=== PATIENT | male | born 1990 | race Caucasian/White ===

== ENCOUNTER 2020-03-30 10:33 | Inpatient (IN) | payer OTHER ==
--- OUTSIDE RECORDS SUMMARY | 2020-03-30 10:38 | XMS ---
:1990 Author Organization [facility] Care Team Providers Name Role Phone Tobin Austin MD Unavailable Unavailable Gold Ambrose DO Unavailable Unavailable Miles Milner MD Unavailable Unavailable Heather Benites PA-C Unavailable Unavailable Re-disclosure Warning The records that you are about to access may contain information from federally- assisted alcohol or drug abuse programs. If such information is present, then the following federally mandated warning applies: This information has been disclosed to you from records protected by federal confidentiality rules (42 CFR part 2). The federal rules prohibit you from making any further disclosure of this information unless further disclosure is expressly permitted by the written consent of the person to whom it pertains or as otherwise permitted by 42 CFR part 2. A general authorization for the release of medical or other information is NOT sufficient for this purpose. The Federal rules restrict any use of the information to criminally investigate or prosecute any alcohol or drug abuse patient.The records that you are about to access may contain highly sensitive health information, the redisclosure of which is protected by Article 27-F of the [facility] Public Health law. If you continue you may haveaccess to information: Regarding HIV / AIDS; Provided by facilities licensed or operated by the [facility] Office of Mental Health; or Provided by the [facility] Office for People With Developmental Disabilities. If such information is present, then the following [facility] mandated warning applies: This information has been disclosed to you from confidential records which are protected by state law. State law prohibits you from making any further disclosure of this information without the specific written consent of the person to whom it pertains, or as otherwise permitted by law. Any unauthorized further disclosure in violation of state law may result in a fine or retirement sentence or both. A general authorization for the release of medical or other information is NOT sufficient authorization for further disclosure. Allergies and Adverse Reactions Type Description Substance Reaction Status Data Source(s ) Drug allergy Penicillins Penicillins [facility] Encounters Encounter Providers Location Date Indications Data Source(s ) Emergency Attender: Grace 03/29/2020 [facility] WITHDRAWAL W linda Stacy Benites 06:09:00 PM ARR-AUTO Hospital EDT - 03/29/2020 10:21:00 PM EDT [facility] WITHDRAWAL ARR-AUTO Patient discharged. Emergency Attender: Miles 03/28/2020 11:08:00 SYNCOPE AR AUTO [facility] Annia DEAN PM EDT - 03/29/2020 [facility] 01:34:00 AM EDT SYNCOPE AR AUTO Patient discharged. Emergency Attender: Tobin 01/15/2020 02:37:00 [place] [facility] Kumar Norman MDAttender: PM EDT - 01/15/2020 Hospital Gold Ambrose DO 04:02:00 PM EDT MED REACTION [place] Patient discharged. 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 MVP ESSENTIAL [id number] SP [id number] PLAN 1 2 MVP ESSENTIAL [id number] PT [id number] PLAN 2 Problems, Conditions, and Diagnoses Code Display Name Description Problem Type Effective Dates Data Source(s) Z88.0 Allergy status to Z88.0 Diagnosis 01/15/2020 [facility] Saldana lains penicillin 03:49:00 PM EDT Hospital Z11.59 Encounter for Z11.59 Diagnosis 01/15/2020 [facility] lucia screening for other 03:49:00 PM EDT Hospital viral diseases R07.9 Chest pain, R07.9 Diagnosis 01/15/2020 [facility] unspecified 03:49:00 PM EDT Hospital F41.9 Anxiety disorder, F41.9 Diagnosis 01/15/2020 [place] unspecified 03:49:00 PM EDT Hospital R00.2 Palpitations R00.2 Diagnosis 01/15/2020 [facility] 03:49:00 PM EDT Hospital R10.13 Epigastric pain R10.13 Diagnosis 01/15/2020 [place] ins 03:49:00 PM EDT Hospital Surgeries/Procedures Procedure Description Date Indications Data Source(s) Electrocardiographic procedure 03/29/2020 [facility] (procedure) 12:00:00 AM Hospital EDT Computed tomography of 03/28/2020 [facility] cervical spine without 12:00:00 AM [facility] contrast EDT Computed tomography of facial 03/28/2020 [facility] bones without contrast 12:00:00 AM [facility] EDT Computed tomography of head 03/28/2020 [facility] without contrast 12:00:00 AM Hospital EDT Electrocardiographic procedure 03/28/2020 [facility] (procedure) 12:00:00 AM Hospital EDT Computed tomography of 03/28/2020 [facility] cervical spine without 12:00:00 AM [facility] contrast EDT Computed tomography of facial 03/28/2020 [facility] bones without contrast 12:00:00 AM [facility] EDT Computed tomography of head 03/28/2020 [facility] without contrast 12:00:00 AM Hospital EDT Electrocardiographic procedure 03/28/2020 [facility] (procedure) 12:00:00 AM Hospital EDT Plain chest X-ray (procedure) 01/15/2020 [facility] 12:00:00 AM Hospital EDT Electrocardiographic procedure 01/15/2020 [facility] (procedure) 12:00:00 AM Hospital EDT Results ID Date Data Source [id number] 03/29/2020 08:56:00 PM EDT [facility] CUT-OFF >= 25 NG/ML.THE FINDINGS OF THE URINE DRUG SCREEN ARE USED SOLELY FOR PATIENT MANAGEMENT AND GUIDANCE. THE RESULTS JUSTINE ULD NOT BE USED FOR FORENSIC PURPOSE. ANY CLINICALLY UNSUSPECTED POSITIVE DRUG SCR EEN CAN BE CONFIRMED BY CALLING THE LABORATORY 3 DAYS WITHIN RECEIPT OF REPO RT. Name Value Range Interpretation Code Description Data Poornima rce(s) Supporting Document(s ) PCP (UR) NEGATIVE [facility] ID Date Data Source [id number] 03/29/2020 08:56:00 PM EDT [facility] CUT-OFF >= 50 NG/ML. Name Value Range Interpretation Code Description Data Poornima rce(s) Supporting Document(s ) THC (UR) NEGATIVE [facility] ID Date Data Source [id number] 03/29/2020 08:56:00 PM EDT [facility] CUT-OFF >= 300 NG/ML. Name Value Range Interpretation Description Data Sup porting Code Source(s) Document(s ) OPIATES (UR) NEGATIVE [facility] ID Date Data Source [id number] 03/29/2020 08:56:00 PM EDT [facility] CUT-OFF >= 300 NG/ML. Name Value Range Interpretation Description Data Sup porting Code Source(s) Document(s ) COCAINE (UR) NEGATIVE [facility] ID Date Data Source [id number] 03/29/2020 08:56:00 PM EDT [facility] CUT-OFF >= 200 NG/ML. Name Value Range Interpretation Description Data Sup porting Code Source(s) Document(s ) BENZODIAZEPINES NEGATIVE [place] (UR) [facility] ID Date Data Source [id number] 03/29/2020 08:56:00 PM EDT [facility] CUT-OFF >= 200 NG/ML. Name Value Range Interpretation Description Data Sup porting Code Source(s) Document(s ) BARBITURATES NEGATIVE [facility] (UR) Hospital ID Date Data Source [id number] 03/29/2020 08:56:00 PM EDT [facility] CUT-OFF >= 1000 NG/ML. Name Value Range Interpretation Description Data Sup porting Code Source(s) Document(s ) AMPHETAMINES NEGATIVE [facility] (UR) Hospital ID Date Data Source [id number] 03/29/2020 07:09:00 PM EDT [facility] Name Value Range Interpretation Description Data Sup porting Code Source(s) Document(s ) Neutrophils/10 71.2 % [facility] 0 leukocytes Hospital in Blood by Automated count ID Date Data Source [id number] 03/29/2020 07:09:00 PM EDT [facility] Name Value Range Interpretation Description Data Sup porting Code Source(s) Document(s ) Platelet mean 10.3 fL [facility] volume Hospital [Entitic volume] in Blood by Automated count ID Date Data Source [id number] 03/29/2020 07:09:00 PM EDT [facility] Name Value Range Interpretation Description Data Sup porting Code Source(s) Document(s ) Platelets 300 [facility] [#/volume] in 10*3/uL Hospital Blood by Automated count ID Date Data Source [id number] 03/29/2020 07:09:00 PM EDT [facility] Name Value Range Interpretation Description Data Sup porting Code Source(s) Document(s ) Erythrocyte 12.0 % [facility] distribution Hospital width [Ratio] by Automated count ID Date Data Source [id number] 03/29/2020 07:09:00 PM EDT [facility] Name Value Range Interpretation Description Data Sup porting Code Source(s) Document(s ) Erythrocyte mean 33.5 [facility] corpuscular g/dL Hospital hemoglobin concentration [Mass/volume] by Automated count ID Date Data Source [id number] 03/29/2020 07:09:00 PM EDT [facility] Name Value Range Interpretation Description Data Sup porting Code Source(s) Document(s ) Erythrocyte 27.6 pg [facility] mean Hospital corpuscular hemoglobin [Entitic mass] by Automated count ID Date Data Source [id number] 03/29/2020 07:09:00 PM EDT [facility] Name Value Range Interpretation Description Data Sup porting Code Source(s) Document(s ) Erythrocyte 82.4 fL [facility] mean Hospital corpuscular volume [Entitic volume] by Automated count ID Date Data Source [id number] 03/29/2020 07:09:00 PM EDT [facility] Name Value Range Interpretation Description Data Sup porting Code Source(s) Document(s ) Hematocrit 41.8 % [facility] [Volume Hospital Fraction] of Blood by Automated count ID Date Data Source [id number] 03/29/2020 07:09:00 PM EDT [facility] Value Range Interpretation Description Data Sup porting Code Source(s) Document(s ) Hemoglobin 14.0 g/dL [facility] [Mass/volume] Hospital in Blood ID Date Data Source [id number] 03/29/2020 [facility] Value Range Interpretation Description Data Sup porting Code Source(s) Document(s ) Erythrocytes 5.07 [facility] [#/volume] in 10*6/uL Hospital Blood by Automated count ID Date Data Source [id number] 03/29/2020 [facility] Name Value Range Interpretation Description Data Sup porting Code Source(s) Document(s ) Leukocytes 8.5 [facility] [#/volume] in 10*3/uL Hospital Blood by Automated count ID Date Data Source [id number] 03/29/2020 07:09:00 PM [facility] REFERENCE RANGES: NONE DETECTED <20 MG/DL NONE TO MILD EUPHORIA 20-49 MG/DL MILD EUPHORIA 50-99 MG/DL MODERATE EUPHORIA 100-149 MG/DL INTOXICATION 150-300 MG/DL Name Value Range Interpretation Description Data Sup porting Code Source(s) Document(s ) Ethanol < 20 [facility] [Mass/volume mg/dL Hospital ] in Serum or Plasma ID Date Data Source [id number] 03/29/2020 07:09:00 PM [facility] TEST RESULT IS A TOTAL TRICYCLIC VALUE.T RICYCLIC ANTIDEPRESSANT REFERENCE RANGE: AMITRIPTYLINE AND METABOLITE (NORTRIPTYL INE) TOTAL THERAPEUTIC: 75 - 225 NG/ML. TOTAL TOXIC: > 400 NG/ML. NORTRIPTYLINE ONLY TOTAL THERAPEUTIC: 50 - 150 NG/ML. TOTAL TOXIC: > 400 NG/ML. IMIPRAMINE AND METABOLITE (DESIPRAMINE) TOTAL THERAPEUTIC: 125 - 175 NG/ML. TOTAL TOXIC: > 400 NG/ML. Name Value Range Interpretation Description Data Sup porting Code Source(s) Document(s ) TRICYCLIC < 80 [facility] ANTIDEPRESSANT ng/mL Hospital ID Date Data Source [id number] 03/29/2020 07:09:00 PM [facility] REFERENCE RANGES: ANALGESIC: 0.0 - 10.0 MG/DL. ARTHRITIC THERAPY: 15.0 - 30.0 MG/DL. Name Value Range Interpretation Description Data Sup porting Code Source(s) Document(s ) Salicylates < 3.0 [facility] [Mass/volume] mg/dL Hospital in Serum or Plasma ID Date Data Source [id number] 03/29/2020 07:09:00 PM [facility] THERAPEUTIC RANGE: 10.0-30.0 UG/MLTOXIC RANGE: 4 HRS AFTER INGESTION >150 UG/ML 12 HRS AFTER INGESTION >35 UG/ML Name Value Range Interpretation Description Data Sup porting Code Source(s) Document(s ) ACETAMINOPHEN < 10.0 [facility] ug/mL Hospital ID Date Data Source [id number] 03/29/2020 07:09:00 PM [facility] Name Value Range Interpretation Description Data Sup porting Code Source(s) Document(s ) Aspartate 15 U/L [place] aminotransferase [facility] [Enzymatic Hospital activity/volume] in Serum or Plasma ID Date Data Source [id number] 03/29/2020 07:09:00 PM EDT [facility] Name Value Range Interpretation Description Data Sup porting Code Source(s) Document(s ) Alanine 18 U/L [place] aminotransferase [facility] [Enzymatic Hospital activity/volume] in Serum or Plasma ID Date Data Source [id number] 03/29/2020 07:09:00 PM EDT [facility] Name Value Range Interpretation Description Data Sup porting Code Source(s) Document(s ) Alkaline 67 U/L [facility] [Enzymatic activity/volume ] in Serum or Plasma ID Date Data Source [id number] 03/29/2020 [facility]:09[facility] Name Value Range Interpretation Description Data Sup porting Code Source(s) Document(s ) Bilirubin.t 0.7 mg/dL [facility] [Mass/volum e] in Serum or Plasma ID Date Data Source [id number] 03/29/2020 07:09[facility] Name Value Range Interpretation Code Description Data Poornima rce(s) Supporting Document(s ) Albumin/Glob 1.8 [facility] [Mass Hospital Ratio] in Serum or Plasma ID Date Data Source [id number] 03/29/2020 07:09[facility] Name Value Range Interpretation Description Data Sup porting Code Source(s) Document(s ) Albumin 3.9 g/dL [facility] [Mass/volume Hospital ] in Serum or Plasma ID Date Data Source [id number] 03/29/2020 07:09[facility] Name Value Range Interpretation Description Data Sup porting Code Source(s) Document(s ) Protein 6.1 g/dL [facility] [Mass/volume Hospital ] in Serum or Plasma ID Date Data Source [id number] 03/29/2020 07:09:00 PM EDT [facility] Name Value Range Interpretation Description Data Sup porting Code Source(s) Document(s ) Calcium 8.6 mg/dL [facility] [Mass/volume Hospital ] in Serum or Plasma ID Date Data Source [id number] 03/29/2020 07:09:00 PM EDT [facility] Name Value Range Interpretation Code Description Data Poornima rce(s) Supporting Document(s ) Urea 8.9 [facility] nitrogen/Cre Hospital atinine [Mass Ratio] in Serum or Plasma ID Date Data Source [id number] 03/29/2020 07:09:00 PM EDT [facility] Name Value Range Interpretation Description Data Sup porting Code Source(s) Document(s ) Creatinine 0.9 mg/dL [facility] [Mass/volume] Hospital in Serum or Plasma ID Date Data Source [id number] 03/29/2020 07:09:00 PM EDT [facility] Name Value Range Interpretation Description Data Sup porting Code Source(s) Document(s ) Urea nitrogen 8 mg/dL [facility] [Mass/volume] Hospital in Serum or Plasma ID Date Data Source [id number] 03/29/2020 07:09:00 PM EDT [facility] Name Value Range Interpretation Code Description Data Poornima rce(s) Supporting Document(s ) Anion gap in 13 [facility] Serum or [facility] Plasma ID Date Data Source [id number] 03/29/2020 07:09:00 PM EDT [facility] Name Value Range Interpretation Description Data Sup porting Code Source(s) Document(s ) Carbon 26 mmol/L [facility] dioxide, Hospital total [Moles/volu me] in Serum or Plasma ID Date Data Source [id number] 03/29/2020 07:09:00 PM EDT [facility] Name Value Range Interpretation Description Data Sup porting Code Source(s) Document(s ) Chloride 105 [facility] [Moles/volum mmol/L Hospital e] in Serum or Plasma ID Date Data Source [id number] 03/29/2020 07:09:00 PM EDT [facility] Name Value Range Interpretation Description Data Sup porting Code Source(s) Document(s ) Potassium 4.4 [facility] [Moles/volume mmol/L Hospital ] in Serum or Plasma ID Date Data Source [id number] 03/29/2020 07:09:00 PM EDT [facility] Value Range Interpretation Description Data Sup porting Code Source(s) Document(s ) Sodium 140 mmol/L [facility] [Moles/volu Hospital me] in Serum or Plasma ID Date Data Source [id number] 03/29/2020 07:09:00 PM EDT [facility] Name Value Range Interpretation Description Data Sup porting Code Source(s) Document(s ) Glucose 94 mg/dL [facility] [Mass/volume Hospital ] in Serum or Plasma ID Date Data Source [id number] 03/29/2020 07:09:00 PM EDT [facility] Name Value Range Interpretation Code Description Data Supporting Source(s) Document(s ) NUCLEATED RBCS 0.0 % [facility] (AUTO Hospital DIFF%)DIS ID Date Data Source [id number] 03/29[facility] Interpretation Description Data Sup porting Code Source(s) Document(s ) Differential AUTOMATED [facility] cell count Hospital method - Blood ID Date Data Source [id number] 03/29/2020 07:09:00 PM EDT [facility] Name Value Range Interpretation Description Data Sup porting Code Source(s) Document(s ) Immature 0.02 [facility] granulocytes 10*3/uL Hospital [#/volume] in Blood by Automated count ID Date Data Source [id number] 03/29/2020 07:09:00 PM EDT [facility] Name Value Range Interpretation Description Data Sup porting Code Source(s) Document(s ) Basophils 0.04 [facility] [#/volume] in 10*3/uL Hospital Blood by Automated count ID Date Data Source [id number] 03/29/2020 07:09:00 PM EDT [facility] Value Range Interpretation Description Data Sup porting Code Source(s) Document(s ) Eosinophils 0.08 [facility] [#/volume] in 10*3/uL Hospital Blood by Automated count ID Date Data Source [id number] 03/29/2020 07:09:00 PM EDT [facility] Value Range Interpretation Description Data Sup porting Code Source(s) Document(s ) Monocytes 0.73 [facility] [#/volume] in 10*3/uL Hospital Blood by Automated count ID Date Data Source [id number] 03/29/2020 07:09:00 PM EDT [facility] Value Range Interpretation Description Data Sup porting Code Source(s) Document(s ) Lymphocytes 1.58 [facility] [#/volume] in 10*3/uL Hospital Blood by Automated count ID Date Data Source [id number] 03/29/2020 07:09:00 PM EDT [facility] Name Value Range Interpretation Description Data Sup porting Code Source(s) Document(s ) Neutrophils 6.04 [facility] [#/volume] in 10*3/uL Hospital Blood by Automated count ID Date Data Source [id number] 03/29/2020 07:09:00 PM EDT [facility] Name Value Range Interpretation Description Data Sup porting Code Source(s) Document(s ) Nucleated 0.0 % [facility] erythrocytes/10 Hospital 0 leukocytes [Ratio] in Blood by Automated count ID Date Data Source [id number] 03/29/2020 07:09:00 PM EDT [facility] Name Value Range Interpretation Description Data Sup porting Code Source(s) Document(s ) Immature 0.2 % [facility] granulocytes/10 Hospital 0 leukocytes in Blood by Automated count ID Date Data Source [id number] 03/29/2020 07:09:00 PM EDT [facility] Value Range Interpretation Description Data Sup porting Code Source(s) Document(s ) Basophils/100 0.5 % [facility] leukocytes in Hospital Blood by Automated count ID Date Data Source [id number] 03/29/2020 07:09:00 PM EDT [facility] Value Range Interpretation Description Data Sup porting Code Source(s) Document(s ) Eosinophils/100 0.9 % [facility] leukocytes in Hospital Blood by Automated count ID Date Data Source [id number] 03/29/2020 07:09:00 PM EDT [facility] Value Range Interpretation Description Data Sup porting Code Source(s) Document(s ) Monocytes/100 8.6 % [facility] leukocytes in Hospital Blood by Automated count ID Date Data Source [id number] 03/29/2020 07:09:00 PM EDT [facility] Name Value Range Interpretation Description Data Sup porting Code Source(s) Document(s ) Lymphocytes/10 18.6 % [facility] 0 leukocytes Hospital in Blood by Automated count ID Date Data Source [id number] 03/28/2020 11:40:[facility] PERFORMED BY [employer] [facility] CHEMILUMINESCENCE METHOD. Name Value Range Interpretation Description Data Sup porting Code Source(s) Document(s ) Troponin < 0.01 [facility] I.cardiac ng/mL Hospital [Mass/volume ] in Serum or Plasma ID Date Data Source [id number] 03/28/2020 11:40:00 PM EDT [facility] Name Value Range Interpretation Description Data Sup porting Code Source(s) Document(s ) Aspartate 20 U/L [place] aminotransferase [facility] [Enzymatic Hospital activity/volume] in Serum or Plasma ID Date Data Source [id number] 03/28/2020 11:40:00 PM EDT [facility] Name Value Range Interpretation Description Data Sup porting Code Source(s) Document(s ) Alanine 20 U/L [place] aminotransferase [facility] [Enzymatic Hospital activity/volume] in Serum or Plasma ID Date Data Source [id number] 03/28/2020 11:40[facility] Name Value Range Interpretation Description Data Sup porting Code Source(s) Document(s ) Alkaline 67 U/L [facility] phosphatase Hospital [Enzymatic activity/volume ] in Serum or Plasma ID Date Data Source [id number] 03/28/2020 11:40[facility] Name Value Range Interpretation Description Data Sup porting Code Source(s) Document(s ) Bilirubin.t 1.0 mg/dL [facility] [Mass/volum e] in Serum or Plasma ID Date Data Source [id number] 03/28/2020 11:40[facility] Name Value Range Interpretation Code Description Data Poornima rce(s) Supporting Document(s ) Albumin/Glob 1.8 [facility] ulin [Mass Hospital Ratio] in Serum or Plasma ID Date Data Source [id number] 03/28/2020 11:40:00 PM EDT [facility] Name Value Range Interpretation Description Data Sup porting Code Source(s) Document(s ) Albumin 4.2 g/dL [facility] [Mass/volume Hospital ] in Serum or Plasma ID Date Data Source [id number] 03/28/2020 11:40:00 PM EDT [facility] Name Value Range Interpretation Description Data Sup porting Code Source(s) Document(s ) Protein 6.6 g/dL [facility] [Mass/volume Hospital ] in Serum or Plasma ID Date Data Source [id number] 03/28/2020 11:40:00 PM EDT [facility] Name Value Range Interpretation Description Data Sup porting Code Source(s) Document(s ) Calcium 8.9 mg/dL [facility] [Mass/volume Hospital ] in Serum or Plasma ID Date Data Source [id number] 03/28/2020 11:40:00 PM EDT [facility] Value Range Interpretation Code Description Data Poornima rce(s) Supporting Document(s ) Urea 11.3 [facility] nitrogen/Cre Hospital atinine [Mass Ratio] in Serum or Plasma ID Date Data Source [id number] 03/28/2020 [facility]:40[facility] Interpretation Description Data Sup porting Code Source(s) Document(s ) Creatinine 0.8 mg/dL [facility] in Serum or Plasma ID Date Data Source [id number] 03/28[facility]2020 [facility]40[facility] Interpretation Description Data Sup porting Code Source(s) Document(s ) Urea nitrogen 9 mg/dL [facility] in Serum or Plasma ID Date Data Source [id number] 03/28/2020 11:40:00 PM EDT [facility] Name Value Range Interpretation Code Description Data Poornima rce(s) Supporting Document(s ) Anion gap in 10 [facility] Serum or Hospital Plasma ID Date Data Source [id number] 03/28/2020 11:40:00 PM EDT [facility] Value Range Interpretation Description Data Sup porting Code Source(s) Document(s ) Carbon 28 mmol/L [facility] dioxide, Hospital total [Moles/volu me] in Serum or Plasma ID Date Data Source [id number] 03/28/2020 11:40:00 PM EDT [facility] Value Range Interpretation Description Data Sup porting Code Source(s) Document(s ) Chloride 105 [facility] [Moles/volum mmol/L Hospital e] in Serum or Plasma ID Date Data Source [id number] 03/28/2020 11:40:00 PM EDT [facility] Name Value Range Interpretation Description Data Sup porting Code Source(s) Document(s ) Potassium 4.5 [facility] [Moles/volume mmol/L Hospital ] in Serum or Plasma ID Date Data Source [id number] 03/28/2020 11:40:00 PM EDT [facility] Value Range Interpretation Description Data Sup porting Code Source(s) Document(s ) Sodium 138 mmol/L [facility] [Moles/volu Hospital me] in Serum or Plasma ID Date Data Source [id number] 03/28/2020 11:40:00 PM EDT [facility] Name Value Range Interpretation Description Data Sup porting Code Source(s) Document(s ) Glucose 105 mg/dL [facility] [Mass[facility]volume Hospital ] in Serum or Plasma ID Date Data Source [id number] 03/28/2020 11:40:00 PM EDT [facility] Value Range Interpretation Description Data Sup porting Code Source(s) Document(s ) Platelet mean 9.[address] [facility] [Entitic volume] in Blood by Automated count ID Date Data Source [id number] 03/28[facility] Interpretation Description Data Sup porting Code Source(s) Document(s ) Platelets 299 [facility] [#/volume] in 10*3/uL Hospital Blood by Automated count ID Date Data Source [id number] 03/28/2020 11:40[facility] Value Range Interpretation Description Data Sup porting Code Source(s) Document(s ) Erythrocyte 11.7 % [facility] width [Ratio] by Automated count ID Date Data Source [id number] 03/28/2020 11:40:[facility] [address] [facility] Value Range Interpretation Description Data Sup porting Code Source(s) Document(s ) Erythrocyte mean 32.9 [facility] corpuscular g/dL Hospital hemoglobin concentration [Mass/volume] by Automated count ID Date Data Source [id number] 03/28/2020 11:40:00 PM [facility] Value Range Interpretation Description Data Sup porting Code Source(s) Document(s ) Erythrocyte 27.[address] [facility] corpuscular hemoglobin [Entitic mass] by Automated count ID Date Data Source [id number] 03/28/2020 11:40:00 PM [facility] Value Range Interpretation Description Data Sup porting Code Source(s) Document(s ) Erythrocyte 82.[address] [facility] corpuscular volume [Entitic volume] by Automated count ID Date Data Source [id number] 03/28/2020 11:40:[facility] [address] [facility] Value Range Interpretation Description Data Sup porting Code Source(s) Document(s ) Hematocrit 44.7 % [facility] [Volume Hospital Fraction] of Blood by Automated count ID Date Data Source [id number] 03/28/2020 11:40[facility] Value Range Interpretation Description Data Sup porting Code Source(s) Document(s ) Hemoglobin 14.7 g/dL [facility]Mass[facility] in Blood ID Date Data Source [id number] 03/28/2020 11:40:00 PM EDT [facility] Name Value Range Interpretation Description Data Sup porting Code Source(s) Document(s ) Erythrocytes 5.43 [facility] [#/volume] in 10*6/uL Hospital Blood by Automated count ID Date Data Source [id number] 03/28/2020 11:40:00 PM EDT [facility] Name Value Range Interpretation Description Data Sup porting Code Source(s) Document(s ) Leukocytes 8.2 [facility] [#/volume] in 10*3/uL Hospital Blood by Automated count ID Date Data Source [id number] 03/28/2020 11:40:00 PM [facility] TEST PERFORMED BY [employer] [facility] [facility] CHEMILUMINESCENCE METHOD. Name Value Range Interpretation Description Data Sup porting Code Source(s) Document(s ) Troponin < 0.01 [facility] I.cardiac ng/mL Hospital [Mass/volume ] in Serum or Plasma ID Date Data Source [id number] 01/15/2020 03:00:00 PM [facility] REFERENCE RANGES: NONE DETECTED <20 MG/DL NONE TO MILD EUPHORIA 20-49 MG/DL MILD EUPHORIA 50-99 MG/DL MODERATE EUPHORIA 100-149 MG/DL INTOXICATION 150-300 MG/DL Name Value Range Interpretation Description Data Sup porting Code Source(s) Document(s ) Ethanol < 20 [facility] [Mass/volume mg/dL Hospital ] in Serum or Plasma ID Date Data Source [id number] 01/15/2020 03:00:00 PM [facility] TEST RESULT IS A TOTAL TRICYCLIC VALUE.T RICYCLIC ANTIDEPRESSANT REFERENCE RANGE: AMITRIPTYLINE AND METABOLITE (NORTRIPTYL INE) TOTAL THERAPEUTIC: 75 - 225 NG/ML. TOTAL TOXIC: > 400 NG/ML. NORTRIPTYLINE ONLY TOTAL THERAPEUTIC: 50 - 150 NG/ML. TOTAL TOXIC: > 400 NG/ML. IMIPRAMINE AND METABOLITE (DESIPRAMINE) TOTAL THERAPEUTIC: 125 - 175 NG/ML. TOTAL TOXIC: > 400 NG/ML. Name Value Range Interpretation Description Data Sup porting Code Source(s) Document(s ) TRICYCLIC < 80 [facility] ANTIDEPRESSANT ng/mL Hospital ID Date Data Source [id number] 01/15/2020 03:00:00 PM [facility] REFERENCE RANGES: ANALGESIC: 0.0 - 10.0 MG/DL. ARTHRITIC THERAPY: 15.0 - 30.0 MG/DL. Name Value Range Interpretation Description Data Sup porting Code Source(s) Document(s ) Salicylates < 3.0 [facility] [Mass/volume] mg/dL Hospital in Serum or Plasma ID Date Data Source [id number] 01/15/2020 03:00:00 PM [facility] THERAPEUTIC RANGE: 10.0-30.0 UG/MLTOXIC RANGE: 4 HRS AFTER INGESTION >150 UG/ML 12 HRS AFTER INGESTION >35 UG/ML Name Value Range Interpretation Description Data Sup porting Code Source(s) Document(s ) ACETAMINOPHEN < 10.0 [facility] ug/mL Hospital ID Date Data Source [id number] 01/15/2020 03:00:00 PM [facility] TEST PERFORMED BY [employer] [facility] [facility] CHEMILUMINESCENCE METHOD. Name Value Range Interpretation Description Data Sup porting Code Source(s) Document(s ) Troponin < 0.01 [facility] I.cardiac ng/mL Hospital [Mass/volume ] in Serum or Plasma ID Date Data Source [id number] 01/15/2020 03:00:00 PM EDT [facility] Name Value Range Interpretation Code Description Data Poornima rce(s) Supporting Document(s ) Lipase 23 U/L [facility] [Enzymatic Hospital activity/vo lume] in Serum or Plasma ID Date Data Source [id number] 01/15/2020 03:00:00 PM EDT [facility] Name Value Range Interpretation Description Data Sup porting Code Source(s) Document(s ) Aspartate 20 U/L White aminotransferase [facility] [Enzymatic Hospital activity/volume] in Serum or Plasma ID Date Data Source [id number] 01/15/2020 03:00:00 PM EDT [facility] Name Value Range Interpretation Description Data Sup porting Code Source(s) Document(s ) Alanine 28 U/L [facility] aminotransferase [facility] [Enzymatic Hospital activity/volume] in Serum or Plasma ID Date Data Source [id number] 01/15/2020 03:00:00 PM EDT [facility] Name Value Range Interpretation Description Data Sup porting Code Source(s) Document(s ) Alkaline 70 U/L [facility] phosphatase Hospital [Enzymatic activity/volume ] in Serum or Plasma ID Date Data Source [id number] 01/15/2020 03:00:00 PM EDT [facility] Name Value Range Interpretation Description Data Sup porting Code Source(s) Document(s ) Bilirubin.t 1.4 mg/dL [facility] [Mass/volum e] in Serum or Plasma ID Date Data Source [id number] 01/15/2020 [facility] Value Range Interpretation Code Description Data Poornima rce(s) Supporting Document(s ) Albumin/Glob 1.9 [facility] ulin [Mass Hospital Ratio] in Serum or Plasma ID Date Data Source [id number] 01/15/2020 03:00:00 PM EDT [facility] Name Value Range Interpretation Description Data Sup porting Code Source(s) Document(s ) Albumin 4.9 g/dL [facility] [Mass/volume Hospital ] in Serum or Plasma ID Date Data Source [id number] 01/15/2020 03:00:00 PM EDT [facility] Name Value Range Interpretation Description Data Sup porting Code Source(s) Document(s ) Protein 7.5 g/dL [facility] [Mass[facility] ] in Serum or Plasma ID Date Data Source [id number] 01/15/2020 03:00:00 PM EDT [facility] Name Value Range Interpretation Description Data Sup porting Code Source(s) Document(s ) Calcium 9.7 mg/dL [facility] [Mass[facility]volume [facility] ] in Serum or Plasma ID Date Data Source [id number] 01/15/2020 03:00:00 PM EDT [facility] Name Value Range Interpretation Code Description Data Poornima rce(s) Supporting Document(s ) Urea 13.0 [facility] nitrogen/Cre Hospital atinine [Mass Ratio] in Serum or Plasma ID Date Data Source [id number] 01/15/2020 03:00:00 PM EDT [facility] Name Value Range Interpretation Description Data Sup porting Code Source(s) Document(s ) Creatinine 1.0 mg/dL [facility] [Mass/volume] [facility] in Serum or Plasma ID Date Data Source [id number] 01/15/2020 [facility] Value Range Interpretation Description Data Sup porting Code Source(s) Document(s ) Urea 13 mg/dL [facility] nitrogen Hospital [Mass/volume ] in Serum or Plasma ID Date Data Source [id number] 01/15/2020 03:00:00 PM EDT [facility] Name Value Range Interpretation Code Description Data Poornima rce(s) Supporting Document(s ) Anion gap in 11 [facility] Serum or Hospital Plasma ID Date Data Source [id number] 01/15/2020 03:00:00 PM EDT [facility] Name Value Range Interpretation Description Data Sup porting Code Source(s) Document(s ) Carbon 31 mmol/L [facility] dioxide, Hospital total [Moles/volu me] in Serum or Plasma ID Date Data Source [id number] 01/15/2020 03:00:00 PM EDT [facility] Name Value Range Interpretation Description Data Sup porting Code Source(s) Document(s ) Chloride 104 [facility] [Moles/volum mmol/L Hospital e] in Serum or Plasma ID Date Data Source [id number] 01/15/2020 03:00:00 PM EDT [facility] Name Value Range Interpretation Description Data Sup porting Code Source(s) Document(s ) Potassium 4.7 [facility] [Moles/volume mmol/L Hospital ] in Serum or Plasma ID Date Data Source [id number] 01/15/2020 03:00:00 PM EDT [facility] Name Value Range Interpretation Description Data Sup porting Code Source(s) Document(s ) Sodium 141 mmol/L [facility] [Moles/volu Hospital me] in Serum or Plasma ID Date Data Source [id number] 01/15/2020 03:00:00 PM EDT [facility] Name Value Range Interpretation Description Data Sup porting Code Source(s) Document(s ) Glucose 86 mg/dL [facility] [Mass/volume Hospital ] in Serum or Plasma ID Date Data Source [id number] 01/15/2020 03:00:00 PM [facility] Value Range Interpretation Description Data Sup porting Code Source(s) Document(s ) Platelet mean 9.5 fL [facility] [Entitic volume] in Blood by Automated count ID Date Data Source [id number] 01/15/2020 [facility] Interpretation Description Data Sup porting Code Source(s) Document(s ) Platelets 320 [facility] [#/volume] in 10*3/uL Hospital Blood by Automated count ID Date Data Source [id number] 01/15/2020 03:00:00 PM [facility] Value Range Interpretation Description Data Sup porting Code Source(s) Document(s ) Erythrocyte 11.9 % [facility] width [Ratio] by Automated count ID Date Data Source [id number] 01/15/2020 03:00:00 PM [facility] Value Range Interpretation Description Data Sup porting Code Source(s) Document(s ) Erythrocyte mean 34.0 [facility] corpuscular g/dL Hospital hemoglobin concentration [Mass/volume] by Automated count ID Date Data Source [id number] 01/15/2020 03:00:00 PM [facility] Value Range Interpretation Description Data Sup porting Code Source(s) Document(s ) Erythrocyte 27.[address] [facility] corpuscular hemoglobin [Entitic mass] by Automated count ID Date Data Source [id number] 01/15/2020 03:00:00 PM [facility] Value Range Interpretation Description Data Sup porting Code Source(s) Document(s ) Erythrocyte 79.[address] [facility] corpuscular volume [Entitic volume] by Automated count ID Date Data Source [id number] 01/15/2020 03:00:00 PM EDT [facility] Name Value Range Interpretation Description Data Sup porting Code Source(s) Document(s ) Hematocrit 45.0 % [facility] [Volume Hospital Fraction] of Blood by Automated count ID Date Data Source [id number] 01/15/2020 03:00:00 PM EDT [facility] Name Value Range Interpretation Description Data Sup porting Code Source(s) Document(s ) Hemoglobin 15.3 g/dL [facility] [Mass/volume] Hospital in Blood ID Date Data Source [id number] 01/15/2020 03:00:00 PM EDT [facility] Name Value Range Interpretation Description Data Sup porting Code Source(s) Document(s ) Erythrocytes 5.67 [facility] [#/volume] in 10*6/uL Hospital Blood by Automated count ID Date Data Source [id number] 01/15/2020 03:00:00 PM EDT [facility] Name Value Range Interpretation Description Data Sup porting Code Source(s) Document(s ) Leukocytes 7.8 [facility] [#/volume] in 10*3/uL Hospital Blood by Automated count Procedure Social History Code Duration Value Status Description Data Source(s ) Smoking 03/28/2020 Current some completed Current some day [facility] 11:25:00 PM EDT day smoker smoker Hospital Vital Signs ID Date Data Source [id number] Name Value Range Interpretation Code Description Data Source(s) Diastolic blood 55 mm[Hg] 55 mm[Hg] [facility] pressure Hospital Systolic blood 91 mm[Hg] 91 mm[Hg] [facility] ns pressure Hospital Respiratory rate 20 /min 20 /min [facility] Heart rate 60 /min 60 /min [facility] Body temperature 36.39120 [facility] 36.65811 [facility] Body temperature 98.1 [degF] 98.1 [degF] [facility] Body mass index 23.2 kg/m2 23.2 kg/m2 [facility] ins (BMI) [Ratio] Hospital Body weight 148 [lb_av] 148 [lb_av] [facility] Diastolic blood 71 mm[Hg] 71 mm[Hg] [facility] pressure Hospital Systolic blood 109 mm[Hg] 109 mm[Hg] [facility] ns pressure Hospital Respiratory rate 20 /min 20 /min [facility] Heart rate 59 /min 59 /min [facility] Body temperature 36.36497 [facility] 36.38343 [facility] Body temperature 98.0 [degF] 98.0 [degF] [facility] Body mass index 21.9 kg/m2 21.9 kg/m2 [facility] ins (BMI) [Ratio] Hospital Body weight 140 [lb_av] 140 [lb_av] [facility] Diastolic blood 88 mm[Hg] 88 mm[Hg] [facility] Systolic blood 123 mm[Hg] 123 mm[Hg] [facility] ns pressure [facility] Respiratory rate 20 /min 20 /min [facility] Heart rate 76 /min 76 /min [facility] Body temperature 36.14189 [facility] 36.63580 [facility] Body temperature 98.0 [degF] 98.0 [degF] [facility] Body mass index 25.0 kg/m2 25.0 kg/m2 [facility] ins (BMI) [Ratio] Hospital Body weight 160 [lb_av] 160 [lb_av] [facility]
--- NOTE | 2020-03-30 10:57 | BHS.RME ---
Substance Use & Tx History - Substance Use History Heroin Substance amount: 1/2 bundle Frequency of use: Daily Substance route: Inhalation (ex: sniffing or snorting) Date of Last Use: 03/27/20 (started age 20) Marijuana/Hashish Substance amount: 1 gram Frequency of use: Once a month Substance route: Smoking Date of Last Use: 02/29/20 (started age 14) Vaping/Electronic Cigaret Substance amount: 1 cartridge Frequency of use: Daily Substance route: Vaping Date of Last Use: 03/30/20 (started age 13) Physical/Psych/Mental Status - Behavior General Behavior: Increased activity (restlessness, agitation) Eye Contact: Normal - Cooperativeness Cooperativeness: Cooperative - Thinking Thought Processes: Tight, Logical, Goal Directed - Physical Health Problems Is patient presently having any pain?: No Does patient presently have any injuries (include location): No Does patient currently have a fever: No Is patient : No COWS - Scale Resting Pulse: 0= SC 80 or Below Sweatin=Flushed/Facial Moisture Restless Observation: 3= Extraneous Movement Pupil Size: 2= Moderately Dilated Bone or Joint Aches: 4=Acute Joint/Muscle Pain Runny Nose/ Eye Tearin= None GI Upset > 30mins: 2= Nausea/Diarrhea Tremor Observation: 2= Slight Tremor Visible Yawning Observation: 2= >3x During Session Anxiety or Irritability: 2=Irritable/Anxious Goose Flesh Skin: 3=Piloerection COWS Score: 22
--- NOTE | 2020-03-30 11:17 | HP ---
"COWS - Scale Resting Pulse: 0= OR 80 or Below Sweatin=Flushed/Facial Moisture Restless Observation: 3= Extraneous Movement Pupil Size: 2= Moderately Dilated Bone or Joint Aches: 4=Acute Joint/Muscle Pain Runny Nose/ Eye Tearin= None GI Upset > 30mins: 2= Nausea/Diarrhea Tremor Observation: 2= Slight Tremor Visible Yawning Observation: 2= >3x During Session Anxiety or Irritability: 2=Irritable/Anxious Goose Flesh Skin: 3=Piloerection COWS Score: 22 CIWA Score - Admission Criteria OASAS Guidelines: Admission for Medically Managed Detox: Requires at least one of the followin. CIWA greater than 12 2. Seizures within the past 24 hours 3. Delirium tremens within the past 24 hours 4. Hallucinations within the past 24 hours 5. Acute intervention needed for co occurring medical disorder 6. Acute intervention needed for co occurring psychiatric disorder 7. Severe withdrawal that cannot be handled at a lower level of care (continued vomiting, continued diarrhea, abnormal vital signs) requiring intravenous medication and/or fluids 8. Admitting History and Physical - Admission Chief Complaint: Mr. Huang is a 29 yo man who presents to [facility] requesting detox from heroin use disorder. History of Present Illness: Mr. Huang is a 29 yo man who presents to [facility] requesting detox from heroin use disorder. He was last here in 2011. He is s/p a [facility] visit. CT head normal. He relapsed 5 mos ago due to personal reasons. PMH: none PSH: right inguinal hernia Psych: depression, (+) SA x 7, no SI currently), sees a Psych provider: Emanuel Ray, ? schizophrenia SOC: lives with parents, [place], [place] Legal: none Substance Use History Heroin Substance amount: 1/2 bundle Frequency of use: Daily Substance route: Inhalation (ex: sniffing or snorting) Date of Last Use: 03/27/20 (started age 20) OD x 5, last at ge 21 y No narcan at home Marijuana/Hashish Substance amount: 1 gram Frequency of use: Once a month Substance route: Smoking Date of Last Use: 02/29/20 (started age 14) Vaping/Electronic Cigaret Substance amount: 1 cartridge Frequency of use: Daily Substance route: Vaping Date of Last Use: 03/30/20 (started age 13) Benzo: has prescription lorazepam from his Psychiatrist [facility] Prabhu Huang, 1990 Search Date: 03/30/2020 12:05:34 PM The Drug Utilization Report below displays all of the controlled substance prescriptions, if any, that your patient has filled in the last twelve months. The information displayed on this report is compiled from pharmacy submissions to the Department, and accurately reflects the information as submitted by the pharmacies. This report was requested by: Kelly Chan | Reference #: [id number] Others' Prescriptions Patient Name: Prabhu Huang Date: 1990 Address: [address] [place] [address] Sex: Male Rx Written Rx Dispensed Drug Quantity Days Supply Prescriber Name 03/05/2020 03/09/2020 lorazepam 2 mg tablet 90 30 LaruelleGordon MD 03/05/2020 03/05/2020 zolpidem tartrate 10 mg tablet 30 30 LaruelleGordon MD 02/11/2020 02/11/2020 lorazepam 2 mg tablet 45 15 LaruelleGordon MD 01/21/2020 01/21/2020 lorazepam 1 mg tablet 45 15 LaruelleGordon MD 01/09/2020 01/09/2020 zolpidem tartrate 10 mg tablet 15 15 LarGordon love MD History Source: Patient Limitations to Obtaining History: No Limitations Admission [facility] Allergies/Adverse Reactions: Allergies Allergy/AdvReac Type Severity Reaction Status Date / Time Penicillins Allergy Nausea Verified 03/30/20 11:13 pineapple Allergy Itching Verified 03/30/20 11:12 Exam Limitations: No Limitations - Ebola screening Have you traveled outside of the country in the last 21 days: No Have you been sick,other than usual withdrawal symptoms: No Do you have a fever: No - Review of Systems Constitutional: Unintentional Wgt. Loss (30 lb lost in the past one month) EENT: reports: No Symptoms Reported Respiratory: reports: No Symptoms reported Cardiac: reports: No Symptoms Reported GI: reports: Nausea : reports: No Symptoms Reported Musculoskeletal: reports: Other (muscle aches) Integumentary: reports: No Symptoms Reported Neuro: reports: No Symptoms reported Endocrine: reports: No Symptoms Reported Hematology: reports: No Symptoms Reported Psychiatric: reports: Anxious, Depressed (No SI) Patient History - Smoking Cessation Smoking history: Current every day smoker Have you smoked in the past 12 months: Yes Aproximately how many cigarettes per day: 20 (vapes) Hx Chewing Tobacco Use: No Initiated information on smoking cessation: Yes 'Breaking Loose' booklet given: 03/30/20 Admission Physical Exam [facility] - Physical General Appearance: Yes: No Apparent Distress, Nourished, Appropriately Dressed HEENTM: Yes: EOMI, Hearing grossly Normal, Normocephalic, Normal Voice Respiratory: Yes: Lungs Clear, No Respiratory Distress, No Accessory Muscle Use Neck: Yes: Within Normal Limits, Supple Breast: Yes: Breast Exam Deferred Cardiology: Yes: Regular Rhythm, Regular Rate Abdominal: Yes: Soft, Increased Bowel Sounds, Tenderness (mild, diffuse) Genitourinary: Yes: Other (deferred) Back: Yes: Normal Inspection Musculoskeletal: Yes: Gait Steady Extremities: Yes: Normal Inspection, Non-Tender Neurological: Yes: Alert, Normal Response Integumentary: Yes: Normal Color, Dry, Warm - Diagnostic (1) Opioid withdrawal Current Visit: Yes Status: Acute (2) Cannabis dependence Current Visit: Yes Status: Acute (3) Nicotine dependence Current Visit: Yes Status: Acute Qualifiers: Nicotine product type: cigarettes Substance use status: uncomplicated Qualified Code(s): F17.210 - Nicotine dependence, cigarettes, uncomplicated (4) Depression Current Visit: Yes Status: Acute (5) History of inguinal hernia repair Current Visit: No Status: Chronic (6) Electronic cigarette use Current Visit: Yes Status: Acute Cleared for Admission [facility] - Detox or Rehab [facility] Level of Care: Medically Managed Detox Regimen/Protocol: Methadone Breathalyzer - Breathalyzer Breathalyzer: 0 Urine Drug Screen - Test Device Lot number: [id number] - Results Urine drug screen results: MOP-Opiates, BZO-Benzodiazepines Inpatient Rehab Admission - Rehab Decision to Admit Inpatient rehab admission?: No"
[2020-03-30 11:18] VITALS: BMI 22.7
[2020-03-30] MEDS ORDERED: MENTHOL/PHENOL 1 EACH UD MM PRN (11:20)
[2020-03-30] MEDS ORDERED: ACETAMINOPHEN 325 MG TABLET (FP) PO PRN ×2 (11:20)
[2020-03-30] MEDS ORDERED: cloNIDine HCL 0.1 MG TABLET PO PRN (11:20)
[2020-03-30] MEDS ORDERED: MAGNESIUM CITRATE 300 ML BOTTLE PO PRN (11:20)
[2020-03-30] MEDS ORDERED: METHADONE HCL 10 MG TABLET (FOR DETOX USE ONLY) PO ONE (11:20)
[2020-03-30] MEDS ORDERED: MAGNESIUM HYDROX 2400MG/30ML ORAL SUSPENSION 30 ML CUP PO PRN (11:20)
[2020-03-30] MEDS ORDERED: METHOCARBAMOL 500 MG TABLET PO PRN (11:20)
[2020-03-30] MEDS ORDERED: IBUPROFEN 400 MG TABLET (FP) PO PRN (11:20)
[2020-03-30] MEDS ORDERED: BISMUTH SUBSALICYLATE 262 MG/15 ML BTL PO PRN (11:20)
[2020-03-30] MEDS ORDERED: MAG HYDROX/AL HYDROX/SIMETH 30 ML UNIT-DOSE CUP PO PRN (11:20)
--- OUTSIDE RECORDS SUMMARY | 2020-03-30 11:54 | XMS ---
:1990 Author Organization [facility] Care Team Providers Name Role Phone [...] is protected by Article 27-F of the [facility] Public Health law. If you continue you may haveaccess to information: Regarding HIV / AIDS; Provided by facilities licensed or operated by the [facility] Office of Mental Health; or Provided by the [facility] Office for People With Developmental Disabilities. If such information is present, then the following [facility] mandated warning applies: This information has been [...] law may result in a fine or senior care sentence or both. A general authorization for [...] Attender: Miles 03/28/2020 11:08:00 [facility]NCOPE [facility] AUTO [facility] Annia DEAN PM EDT - 03/29/2020 [facility] 01:34:00 AM EDT [facility]NC[facility] AUTO Patient discharged. Emergency Attender: Tobin 01/15/2020 02:37:00 [place] Lucio Kumar Norman MDAttender: PM EDT - 01/15/2020 Hospital Gold Ambrose DO 04:02:00 PM EDT MED REACTION [place] Patient discharged. 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 ESSENTIAL [id number] SP [id number] PLAN 1 2 [employer] ESS[employer] [id number] PT [id number] PLAN 2 Problems, Conditions, and Diagnoses Code Display Name Description Problem Type Effective Dates Data Source(s) Z88.0 Allergy status to Z88.0 Diagnosis 01/15/2020 Lucio Saldana lains penicillin 03:49:00 PM EDT Hospital Z11.59 Encounter for Z11.59 Diagnosis 01/15/2020 Lucio lucia screening for other 03:49:00 PM EDT Hospital viral diseases R07.9 Chest pain, R07.9 Diagnosis 01/15/2020 [facility] unspecified 03:49:00 PM EDT Hospital F41.9 Anxiety disorder, F41.9 Diagnosis 01/15/2020 [place] unspecified 03:49:00 PM EDT Hospital R00.2 Palpitations R00.2 Diagnosis 01/15/2020 [facility] 03:49:00 PM EDT Hospital R10.13 Epigastric pain R10.13 Diagnosis 01/15/2020 [place] ins 03:49:00 PM EDT Hospital Surgeries/Procedures Procedure Description Date Indications Data Source(s) Electrocardiographic procedure 03/29/2020 [facility] (procedure) 12:00:00 AM Hospital EDT Computed tomography of 03/28/2020 [facility] cervical spine without 12:00:00 AM [facility] contrast EDT Computed tomography of facial 03/28/2020 [facility] bones without contrast 12:00:00 AM [facility] EDT Computed tomography of head 03/28/2020 [facility] without contrast 12:00:00 AM Hospital EDT Electrocardiographic procedure 03/28/2020 [facility] (procedure) 12:00:00 AM Hospital EDT Computed tomography of 03/28/2020 [facility] cervical spine without 12:00:00 AM [facility] contrast EDT Computed tomography of facial 03/28/2020 [facility] bones without contrast 12:00:00 AM [facility] EDT Computed tomography of head 03/28/2020 [facility] without contrast 12:00:00 AM Hospital EDT Electrocardiographic procedure 03/28/2020 [facility] (procedure) 12:00:00 AM Hospital EDT Plain chest X-ray (procedure) 01/15/2020 [facility] 12:00:00 AM Hospital EDT Electrocardiographic procedure 01/15/2020 [facility] (procedure) 12:00:00 AM Hospital EDT Results ID Date Data Source [id number] 03/29/2020 08:56:00 PM EDT [facility] CUT-OFF >= 25 NG/ML.THE FINDINGS OF [...] rce(s) Supporting Document(s ) PCP (UR) NEGATIVE [facility] ID Date Data Source [id number] 03/29/2020 08:56:00 PM EDT [facility] CUT-OFF >= 50 NG/ML. Name Value Range Interpretation Code Description Data Poornima rce(s) Supporting Document(s ) THC (UR) NEGATIVE [facility] ID Date Data Source [id number] 03/29/2020 08:56:00 PM EDT [facility] CUT-OFF >= 300 NG/ML. Name Value Range Interpretation Description Data Sup porting Code Source(s) Document(s ) OPIATES (UR) NEGATIVE [facility] ID Date Data Source [id number] 03/29/2020 08:56:00 PM EDT [facility] CUT-OFF >= 300 NG/ML. Name Value Range Interpretation Description Data Sup porting Code Source(s) Document(s ) COCAINE (UR) NEGATIVE [facility] ID Date Data Source [id number] 03/29/2020 08:56:00 PM EDT [facility] CUT-OFF >= 200 NG/ML. Name Value Range Interpretation Description Data Sup porting Code Source(s) Document(s ) BENZODIAZEPINES NEGATIVE [place] (UR) [facility] ID Date Data Source [id number] 03/29/2020 08:56:00 PM EDT [facility] CUT-OFF >= 200 NG/ML. Name Value Range Interpretation Description Data Sup porting Code Source(s) Document(s ) BARBITURATES NEGATIVE [facility] (UR) Hospital ID Date Data Source [id number] 03/29/2020 08:56:00 PM EDT [facility] CUT-OFF >= 1000 NG/ML. Name Value Range Interpretation Description Data Sup porting Code Source(s) Document(s ) AMPHETAMINES NEGATIVE [facility] (UR) Hospital ID Date Data Source [id number] 03/29/2020 07:09:00 PM EDT [facility] Name Value Range Interpretation Description Data Sup porting Code Source(s) Document(s ) Neutrophils/10 71.2 % [facility] 0 leukocytes Hospital in Blood by Automated count ID Date Data Source [id number] 03/29/2020 07:09:00 PM EDT [facility] Name Value Range Interpretation Description Data Sup porting Code Source(s) Document(s ) Platelet mean 10.3 fL [facility] volume Hospital [Entitic volume] in Blood by Automated count ID Date Data Source [id number] 03/29/2020 07:09:00 PM EDT [facility] Name Value Range Interpretation Description Data Sup porting Code Source(s) Document(s ) Platelets 300 [facility] [#/volume] in 10*3/uL Hospital Blood by Automated count ID Date Data Source [id number] 03/29/2020 07:09:00 PM EDT [facility] Name Value Range Interpretation Description Data Sup porting Code Source(s) Document(s ) Erythrocyte 12.0 % [facility] distribution Hospital width [Ratio] by Automated count ID Date Data Source [id number] 03/29/2020 07:09:00 PM EDT [facility] Name Value Range Interpretation Description Data Sup porting Code Source(s) Document(s ) Erythrocyte mean 33.5 [facility] corpuscular g/dL Hospital hemoglobin concentration [Mass/volume] by Automated count ID Date Data Source [id number] 03/29/2020 07:09:00 PM EDT [facility] Name Value Range Interpretation Description Data Sup porting Code Source(s) Document(s ) Erythrocyte 27.6 pg [facility] mean Hospital corpuscular hemoglobin [Entitic mass] by Automated count ID Date Data Source [id number] 03/29/2020 07:09:00 PM EDT [facility] Name Value Range Interpretation Description Data Sup porting Code Source(s) Document(s ) Erythrocyte 82.4 fL [facility] mean Hospital corpuscular volume [Entitic volume] by Automated count ID Date Data Source [id number] 03/29/2020 07:09:00 PM EDT [facility] Name Value Range Interpretation Description Data Sup porting Code Source(s) Document(s ) Hematocrit 41.8 % [facility] [Volume Hospital Fraction] of Blood by Automated count ID Date Data Source [id number] 03/29/2020 07:09:00 PM EDT [facility] Value Range Interpretation Description Data Sup porting Code Source(s) Document(s ) Hemoglobin 14.0 g/dL [facility] [Mass/volume] Hospital in Blood ID Date Data Source [id number] [facility] Interpretation Description Data Sup porting Code Source(s) Document(s ) Erythrocytes 5.07 [facility] [#/volume] in 10*6/uL Hospital Blood by Automated count ID Date Data Source [id number] 03/29/2020 [facility] Value Range Interpretation Description Data Sup porting Code Source(s) Document(s ) Leukocytes 8.5 [facility] [#/volume] in 10*3/uL Hospital Blood by Automated count ID Date Data Source [id number] 03/29/2020 07:09:00 PM [facility] REFERENCE RANGES: NONE DETECTED <20 MG/DL NONE TO MILD EUPHORIA 20-49 MG/DL MILD EUPHORIA 50-99 MG/DL MODERATE EUPHORIA 100-149 MG/DL INTOXICATION 150-300 MG/DL Name Value Range Interpretation Description Data Sup porting Code Source(s) Document(s ) Ethanol < 20 [facility] [Mass/volume mg/dL Hospital ] in Serum or Plasma ID Date Data Source [id number] 03/29/2020 07:09:00 PM [facility] TEST RESULT IS A TOTAL TRICYCLIC VALUE.T [...] Code Source(s) Document(s ) TRICYCLIC < 80 [facility] ANTIDEPRESSANT ng/mL Hospital ID Date Data Source [id number] 03/29/2020 07:09:00 PM [facility] REFERENCE RANGES: ANALGESIC: 0.0 - 10.0 MG/DL. ARTHRITIC THERAPY: 15.0 - 30.0 MG/DL. Name Value Range Interpretation Description Data Sup porting Code Source(s) Document(s ) Salicylates < 3.0 [facility] [Mass/volume] mg/dL Hospital in Serum or Plasma ID Date Data Source [id number] 03/29/2020 07:09:00 PM [facility] THERAPEUTIC RANGE: 10.0-30.0 UG/MLTOXIC RANGE: 4 HRS AFTER INGESTION >150 UG/ML 12 HRS AFTER INGESTION >35 UG/ML Name Value Range Interpretation Description Data Sup porting Code Source(s) Document(s ) ACETAMINOPHEN < 10.0 [facility] ug/mL Hospital ID Date Data Source [id number] 03/29/2020 07:09:00 PM [facility] Name Value Range Interpretation Description Data Sup porting Code Source(s) Document(s ) Aspartate 15 U/L [place] aminotransferase [place] [Enzymatic Hospital activity/volume] in Serum or Plasma ID Date Data Source [id number] 03/29/2020 07:09:00 PM EDT [facility] Name Value Range Interpretation Description Data Sup porting Code Source(s) Document(s ) Alanine 18 U/L [place] aminotransferase [place] [Enzymatic Hospital activity/volume] in Serum or Plasma ID Date Data Source [id number] 03/29/2020 07:09:00 PM EDT [facility] Name Value Range Interpretation Description Data Sup porting Code Source(s) Document(s ) Alkaline 67 U/L [facility] [Enzymatic activity/volume ] in Serum or Plasma ID Date Data Source [id number] 03/29/2020 [facility]:09[facility] Value Range Interpretation Description Data Sup porting Code Source(s) Document(s ) Bilirubin.t 0.7 mg/dL [facility] [Mass/volum e] in Serum or Plasma ID Date Data Source [id number] 03/29/2020 [facility]:09[facility] Name Value Range Interpretation Code Description Data Poornima rce(s) Supporting Document(s ) Albumin/Glob 1.8 [facility] [Mass Hospital Ratio] in Serum or Plasma ID Date Data Source [id number] 03/29/2020 [facility]:09[facility] Name Value Range Interpretation Description Data Sup porting Code Source(s) Document(s ) Albumin 3.9 g/dL [facility] [Mass/volume Hospital ] in Serum or Plasma ID Date Data Source [id number] 03/29/2020 [facility]:09[facility] Name Value Range Interpretation Description Data Sup porting Code Source(s) Document(s ) Protein 6.1 g/dL [facility] [Mass/volume Hospital ] in Serum or Plasma ID Date Data Source [id number] 03/29/2020 07:09:00 PM EDT [facility] Name Value Range Interpretation Description Data Sup porting Code Source(s) Document(s ) Calcium 8.6 mg/dL [facility] [Mass/volume Hospital ] in Serum or Plasma ID Date Data Source [id number] 03/29/2020 07:09:00 PM EDT [facility] Name Value Range Interpretation Code Description Data Poornima rce(s) Supporting Document(s ) Urea 8.9 [facility] nitrogen/Cre Hospital atinine [Mass Ratio] in Serum or Plasma ID Date Data Source [id number] 03/29/2020 07:09:00 PM EDT [facility] Name Value Range Interpretation Description Data Sup porting Code Source(s) Document(s ) Creatinine 0.9 mg/dL [facility] [Mass/volume] Hospital in Serum or Plasma ID Date Data Source [id number] 03/29/2020 07:09:00 PM EDT [facility] Name Value Range Interpretation Description Data Sup porting Code Source(s) Document(s ) Urea nitrogen 8 mg/dL [facility] [Mass/volume] Hospital in Serum or Plasma ID Date Data Source [id number] 03/29/2020 07:09:00 PM EDT [facility] Name Value Range Interpretation Code Description Data Poornima rce(s) Supporting Document(s ) Anion gap in 13 [facility] Serum or [facility] Plasma ID Date Data Source [id number] 03/29/2020 07:09:00 PM EDT [facility] Name Value Range Interpretation Description Data Sup porting Code Source(s) Document(s ) Carbon 26 mmol/L [facility] dioxide, Hospital total [Moles/volu me] in Serum or Plasma ID Date Data Source [id number] 03/29/2020 07:09:00 PM EDT [facility] Name Value Range Interpretation Description Data Sup porting Code Source(s) Document(s ) Chloride 105 [facility] [Moles/volum mmol/L Hospital e] in Serum or Plasma ID Date Data Source [id number] 03/29/2020 07:09:00 PM EDT [facility] Name Value Range Interpretation Description Data Sup porting Code Source(s) Document(s ) Potassium 4.4 [facility] [Moles/volume mmol/L Hospital ] in Serum or Plasma ID Date Data Source [id number] 03/29/2020 07:09:00 PM EDT [facility] Value Range Interpretation Description Data Sup porting Code Source(s) Document(s ) Sodium 140 mmol/L [facility] [Moles/volu Hospital me] in Serum or Plasma ID Date Data Source [id number] 03/29/2020 07:09:00 PM EDT [facility] Name Value Range Interpretation Description Data Sup porting Code Source(s) Document(s ) Glucose 94 mg/dL [facility] [Mass/volume Hospital ] in Serum or Plasma ID Date Data Source [id number] 03/29/2020 07:09:00 PM EDT [facility] Name Value Range Interpretation Code Description Data Supporting Source(s) Document(s ) NUCLEATED RBCS 0.0 % [facility] (AUTO Hospital DIFF%)DIS ID Date Data Source [id number] [facility] Description Data Sup porting Code Source(s) Document(s ) Differential AUTOMATED [facility] cell count Hospital method - Blood ID Date Data Source [id number] 03/29/2020 07:09:00 PM EDT [facility] Name Value Range Interpretation Description Data Sup porting Code Source(s) Document(s ) Immature 0.02 [facility] granulocytes 10*3/uL Hospital [#/volume] in Blood by Automated count ID Date Data Source [id number] 03/29/2020 07:09:00 PM EDT [facility] Name Value Range Interpretation Description Data Sup porting Code Source(s) Document(s ) Basophils 0.04 [facility] [#/volume] in 10*3/uL Hospital Blood by Automated count ID Date Data Source [id number] 03/29/2020 07:09:00 PM EDT [facility] Value Range Interpretation Description Data Sup porting Code Source(s) Document(s ) Eosinophils 0.08 [facility] [#/volume] in 10*3/uL Hospital Blood by Automated count ID Date Data Source [id number] 03/29/2020 07:09:00 PM EDT [facility] Value Range Interpretation Description Data Sup porting Code Source(s) Document(s ) Monocytes 0.73 [facility] [#/volume] in 10*3/uL Hospital Blood by Automated count ID Date Data Source [id number] 03/29/2020 07:09:00 PM EDT [facility] Value Range Interpretation Description Data Sup porting Code Source(s) Document(s ) Lymphocytes 1.58 [facility] [#/volume] in 10*3/uL Hospital Blood by Automated count ID Date Data Source [id number] 03/29/2020 07:09:00 PM EDT [facility] Name Value Range Interpretation Description Data Sup porting Code Source(s) Document(s ) Neutrophils 6.04 [facility] [#/volume] in 10*3/uL Hospital Blood by Automated count ID Date Data Source [id number] 03/29/2020 07:09:00 PM EDT [facility] Name Value Range Interpretation Description Data Sup porting Code Source(s) Document(s ) Nucleated 0.0 % [facility] erythrocytes/10 Hospital 0 leukocytes [Ratio] in Blood by Automated count ID Date Data Source [id number] 03/29/2020 07:09:00 PM EDT [facility] Name Value Range Interpretation Description Data Sup porting Code Source(s) Document(s ) Immature 0.2 % [facility] granulocytes/10 Hospital 0 leukocytes in Blood by Automated count ID Date Data Source [id number] 03/29/2020 07:09:00 PM EDT [facility] Value Range Interpretation Description Data Sup porting Code Source(s) Document(s ) Basophils/100 0.5 % [facility] leukocytes in Hospital Blood by Automated count ID Date Data Source [id number] 03/29/2020 07:09:00 PM EDT [facility] Value Range Interpretation Description Data Sup porting Code Source(s) Document(s ) Eosinophils/100 0.9 % [facility] leukocytes in Hospital Blood by Automated count ID Date Data Source [id number] 03/29/2020 07:09:00 PM EDT [facility] Value Range Interpretation Description Data Sup porting Code Source(s) Document(s ) Monocytes/100 8.6 % [facility] leukocytes in Hospital Blood by Automated count ID Date Data Source [id number] 03/29/2020 07:09:00 PM EDT [facility] Name Value Range Interpretation Description Data Sup porting Code Source(s) Document(s ) Lymphocytes/10 18.6 % [facility] 0 leukocytes Hospital in Blood by Automated count ID Date Data Source [id number] 03/28/2020 [facility]40[facility] PERFORMED BY [employer]ENSIT[employer] CHEMILUMINESCENCE METHOD. Name Value Range Interpretation Description Data Sup porting Code Source(s) Document(s ) Troponin < 0.01 [facility] I.cardiac ng/mL Hospital [Mass/volume ] in Serum or Plasma ID Date Data Source [id number] 03/28/2020 11:40:00 PM EDT [facility] Name Value Range Interpretation Description Data Sup porting Code Source(s) Document(s ) Aspartate 20 U/L [place] aminotransferase [place] [Enzymatic Hospital activity/volume] in Serum or Plasma ID Date Data Source [id number] 03/28/2020 11:40:00 PM EDT [facility] Name Value Range Interpretation Description Data Sup porting Code Source(s) Document(s ) Alanine 20 U/L [place] aminotransferase [place] [Enzymatic Hospital activity/volume] in Serum or Plasma ID Date Data Source [id number] 03/28/2020 [facility]:40[facility] Value Range Interpretation Description Data Sup porting Code Source(s) Document(s ) Alkaline 67 U/L [facility] phosphatase Hospital [Enzymatic activity/volume ] in Serum or Plasma ID Date Data Source [id number] 03/28/2020 [facility]:40[facility] Value Range Interpretation Description Data Sup porting Code Source(s) Document(s ) Bilirubin.t 1.0 mg/dL [facility] [Mass/volum e] in Serum or Plasma ID Date Data Source [id number] 03/28/2020 [facility]:40[facility] Value Range Interpretation Code Description Data Poornima rce(s) Supporting Document(s ) Albumin/Glob 1.8 [facility] ulin [Mass Hospital Ratio] in Serum or Plasma ID Date Data Source [id number] 03/28/2020 11:40:00 PM EDT [facility] Name Value Range Interpretation Description Data Sup porting Code Source(s) Document(s ) Albumin 4.2 g/dL [facility] [Mass/volume Hospital ] in Serum or Plasma ID Date Data Source [id number] 03/28/2020 11:40:00 PM EDT [facility] Name Value Range Interpretation Description Data Sup porting Code Source(s) Document(s ) Protein 6.6 g/dL [facility] [Mass/volume Hospital ] in Serum or Plasma ID Date Data Source [id number] 03/28/2020 11:40:00 PM EDT [facility] Name Value Range Interpretation Description Data Sup porting Code Source(s) Document(s ) Calcium 8.9 mg/dL [facility] [Mass/volume Hospital ] in Serum or Plasma ID Date Data Source [id number] 03/28/2020 11:40:00 PM EDT [facility] Value Range Interpretation Code Description Data Poornima rce(s) Supporting Document(s ) Urea 11.3 [facility] nitrogen/Cre Hospital atinine [Mass Ratio] in Serum or Plasma ID Date Data Source [id number] 03/[facility] Interpret[facility] Description Data Sup porting Code Source(s) Document(s ) Creatinine 0.8 mg/dL [facility] [Mass/volume] Hospital in Serum or Plasma ID Date Data Source [id number] 03/28/2020 [facility]:40[facility] Value Range Interpretation Description Data Sup porting Code Source(s) Document(s ) Urea nitrogen 9 mg/dL [facility] [Mass/volume] Hospital in Serum or Plasma ID Date Data Source [id number] 03/28/2020 11:40:00 PM EDT [facility] Name Value Range Interpretation Code Description Data Poornima rce(s) Supporting Document(s ) Anion gap in 10 [facility] Serum or Hospital Plasma ID Date Data Source [id number] 03/28/2020 11:40:00 PM EDT [facility] Value Range Interpretation Description Data Sup porting Code Source(s) Document(s ) Carbon 28 mmol/L [facility] dioxide, Hospital total [Moles/volu me] in Serum or Plasma ID Date Data Source [id number] 03/28/2020 11:40:00 PM EDT [facility] Value Range Interpretation Description Data Sup porting Code Source(s) Document(s ) Chloride 105 [facility] [Moles/volum mmol/L Hospital e] in Serum or Plasma ID Date Data Source [id number] 03/28/2020 11:40:00 PM EDT [facility] Name Value Range Interpretation Description Data Sup porting Code Source(s) Document(s ) Potassium 4.5 [facility] [Moles/volume mmol/L Hospital ] in Serum or Plasma ID Date Data Source [id number] 03/28/2020 11:40:00 PM EDT [facility] Value Range Interpretation Description Data Sup porting Code Source(s) Document(s ) Sodium 138 mmol/L [facility] [Moles/volu Hospital me] in Serum or Plasma ID Date Data Source [id number] 03/28/2020 11:40:00 PM EDT [facility] Name Value Range Interpretation Description Data Sup porting Code Source(s) Document(s ) Glucose 105 mg/dL [facility] [Mass/volume Hospital ] in Serum or Plasma ID Date Data Source [id number] 03/28/2020 11:40:00 PM EDT [facility] Value Range Interpretation Description Data Sup porting Code Source(s) Document(s ) Platelet mean 9.9 fL [facility] [Entitic volume] in Blood by Automated count ID Date Data Source [id number] 03/28/2020 [facility] Interpretation Description Data Sup porting Code Source(s) Document(s ) Platelets 299 [facility] [#/volume] in 10*3/uL Hospital Blood by Automated count ID Date Data Source [id number] 03/28/2020 [facility]:40[facility] Interpretation Description Data Sup porting Code Source(s) Document(s ) Erythrocyte 11.7 % [facility] width [Ratio] by Automated count ID Date Data Source [id number] [facility] Interpretation Description Data Sup porting Code Source(s) Document(s ) Erythrocyte mean 32.9 [facility] corpuscular g/dL Hospital hemoglobin concentration [Mass/volume] by Automated count ID Date Data Source [id number] 03/28/2020 11:40:00 PM [facility] Value Range Interpretation Description Data Sup porting Code Source(s) Document(s ) Erythrocyte 27.1 pg [facility] corpuscular hemoglobin [Entitic mass] by Automated count ID Date Data Source [id number] 03/28/2020 11:40:00 PM [facility] Value Range Interpretation Description Data Sup porting Code Source(s) Document(s ) Erythrocyte 82.3 fL [facility] corpuscular volume [Entitic volume] by Automated count ID Date Data Source [id number] 03/28/2020 [facility] Interpretation Description Data Sup porting Code Source(s) Document(s ) Hematocrit 44.7 % [facility] [Volume Hospital Fraction] of Blood by Automated count ID Date Data Source [id number] 03/[facility]2020 [facility] Interpretation Description Data Sup porting Code Source(s) Document(s ) Hemoglobin 14.7 g/dL [facility] [Mass/volume] Hospital in Blood ID Date Data Source [id number] 03/28/2020 11:40:00 PM EDT [facility] Name Value Range Interpretation Description Data Sup porting Code Source(s) Document(s ) Erythrocytes 5.43 [facility] [#/volume] in 10*6/uL Hospital Blood by Automated count ID Date Data Source [id number] 03/28/2020 11:40:00 PM EDT [facility] Name Value Range Interpretation Description Data Sup porting Code Source(s) Document(s ) Leukocytes 8.2 [facility] [#/volume] in 10*3/uL Hospital Blood by Automated count ID Date Data Source [id number] 03/28/2020 11:40:00 PM [facility] TEST PERFORMED BY [employer] CHEMILUMINESCENCE METHOD. Name Value Range Interpretation Description Data Sup porting Code Source(s) Document(s ) Troponin < 0.01 [facility] I.cardiac ng/mL Hospital [Mass/volume ] in Serum or Plasma ID Date Data Source [id number] 01/15/2020 03:00:00 PM [facility] REFERENCE RANGES: NONE DETECTED <20 MG/DL NONE TO MILD EUPHORIA 20-49 MG/DL MILD EUPHORIA 50-99 MG/DL MODERATE EUPHORIA 100-149 MG/DL INTOXICATION 150-300 MG/DL Name Value Range Interpretation Description Data Sup porting Code Source(s) Document(s ) Ethanol < 20 [facility] [Mass/volume mg/dL Hospital ] in Serum or Plasma ID Date Data Source [id number] 01/15/2020 03:00:00 PM [facility] TEST RESULT IS A TOTAL TRICYCLIC VALUE.T [...] Code Source(s) Document(s ) TRICYCLIC < 80 [facility] ANTIDEPRESSANT ng/mL Hospital ID Date Data Source [id number] 01/15/2020 03:00:00 PM [facility] REFERENCE RANGES: ANALGESIC: 0.0 - 10.0 MG/DL. ARTHRITIC THERAPY: 15.0 - 30.0 MG/DL. Name Value Range Interpretation Description Data Sup porting Code Source(s) Document(s ) Salicylates < 3.0 [facility] [Mass/volume] mg/dL Hospital in Serum or Plasma ID Date Data Source [id number] 01/15/2020 03:00:00 PM [facility] THERAPEUTIC RANGE: 10.0-30.0 UG/MLTOXIC RANGE: 4 HRS AFTER INGESTION >150 UG/ML 12 HRS AFTER INGESTION >35 UG/ML Name Value Range Interpretation Description Data Sup porting Code Source(s) Document(s ) ACETAMINOPHEN < 10.0 [facility] ug/mL Hospital ID Date Data Source [id number] 01/15/2020 03:00:00 PM [facility] TEST PERFORMED BY [employer] [facility] CHEMILUMINESCENCE METHOD. Name Value Range Interpretation Description Data Sup porting Code Source(s) Document(s ) Troponin < 0.01 [facility] I.cardiac ng/mL Hospital [Mass/volume ] in Serum or Plasma ID Date Data Source [id number] 01/15/2020 03:00:00 PM EDT [facility] Name Value Range Interpretation Code Description Data Poornima rce(s) Supporting Document(s ) Lipase 23 U/L [facility] [Enzymatic Hospital activity/vo lume] in Serum or Plasma ID Date Data Source [id number] 01/15/2020 03:00:00 PM EDT [facility] Name Value Range Interpretation Description Data Sup porting Code Source(s) Document(s ) Aspartate 20 U/L [facility] aminotransferase [place] [Enzymatic Hospital activity/volume] in Serum or Plasma ID Date Data Source [id number] 01/15/2020 03:00:00 PM EDT [facility] Name Value Range Interpretation Description Data Sup porting Code Source(s) Document(s ) Alanine 28 U/L [facility] aminotransferase [place] [Enzymatic Hospital activity/volume] in Serum or Plasma ID Date Data Source [id number] 01/15/2020 03:00:00 PM EDT [facility] Name Value Range Interpretation Description Data Sup porting Code Source(s) Document(s ) Alkaline 70 U/L [facility] phosphatase Hospital [Enzymatic activity/volume ] in Serum or Plasma ID Date Data Source [id number] 01/15/2020 03:00:00 PM EDT [facility] Name Value Range Interpretation Description Data Sup porting Code Source(s) Document(s ) Bilirubin.t 1.4 mg/dL [facility] [Mass/volum e] in Serum or Plasma ID Date Data Source [id number] 01/15[facility]2020 [facility] Interpretation Code Description Data Poornima rce(s) Supporting Document(s ) Albumin/Glob 1.9 [facility] ulin [Mass Hospital Ratio] in Serum or Plasma ID Date Data Source [id number] 01/15/2020 03:00:00 PM EDT [facility] Name Value Range Interpretation Description Data Sup porting Code Source(s) Document(s ) Albumin 4.9 g/dL [facility] [Mass/volume Hospital ] in Serum or Plasma ID Date Data Source [id number] 01/15/2020 03:00:00 PM EDT [facility] Name Value Range Interpretation Description Data Sup porting Code Source(s) Document(s ) Protein 7.5 g/dL [facility] [Mass/volume Hospital ] in Serum or Plasma ID Date Data Source [id number] 01/15/2020 03:00:00 PM EDT [facility] Name Value Range Interpretation Description Data Sup porting Code Source(s) Document(s ) Calcium 9.7 mg/dL [facility] [Mass/volume Hospital ] in Serum or Plasma ID Date Data Source [id number] 01/15/2020 03:00:00 PM EDT [facility] Name Value Range Interpretation Code Description Data Poornima rce(s) Supporting Document(s ) Urea 13.0 [facility] nitrogen/Cre Hospital atinine [Mass Ratio] in Serum or Plasma ID Date Data Source [id number] 01/15/2020 03:00:00 PM EDT [facility] Name Value Range Interpretation Description Data Sup porting Code Source(s) Document(s ) Creatinine 1.0 mg/dL [facility] [Mass/volume] Hospital in Serum or Plasma ID Date Data Source [id number] 01/15/2020 [facility] Interpretation Description Data Sup porting Code Source(s) Document(s ) Urea 13 mg/dL [facility] nitrogen Hospital [Mass/volume ] in Serum or Plasma ID Date Data Source [id number] 01/15/2020 03:00:00 PM EDT [facility] Name Value Range Interpretation Code Description Data Poornima rce(s) Supporting Document(s ) Anion gap in 11 [facility] Serum or Hospital Plasma ID Date Data Source [id number] 01/15/2020 03:00:00 PM EDT [facility] Name Value Range Interpretation Description Data Sup porting Code Source(s) Document(s ) Carbon 31 mmol/L [facility] dioxide, Hospital total [Moles/volu me] in Serum or Plasma ID Date Data Source [id number] 01/15/2020 03:00:00 PM EDT [facility] Name Value Range Interpretation Description Data Sup porting Code Source(s) Document(s ) Chloride 104 [facility] [Moles/volum mmol/L Hospital e] in Serum or Plasma ID Date Data Source [id number] 01/15/2020 03:00:00 PM EDT [facility] Name Value Range Interpretation Description Data Sup porting Code Source(s) Document(s ) Potassium 4.7 [facility] [Moles/volume mmol/L Hospital ] in Serum or Plasma ID Date Data Source [id number] 01/15/2020 03:00:00 PM EDT [facility] Name Value Range Interpretation Description Data Sup porting Code Source(s) Document(s ) Sodium 141 mmol/L [facility] [Moles/volu Hospital me] in Serum or Plasma ID Date Data Source [id number] 01/15/2020 03:00:00 PM EDT [facility] Name Value Range Interpretation Description Data Sup porting Code Source(s) Document(s ) Glucose 86 mg/dL [facility] [Mass/volume Hospital ] in Serum or Plasma ID Date Data Source [id number] 01/15/2020 03:00:00 PM [facility] Value Range Interpretation Description Data Sup porting Code Source(s) Document(s ) Platelet mean 9.[address] [facility] Hospital [Entitic volume] in Blood by Automated count ID Date Data Source [id number] [facility] Description Data Sup porting Code Source(s) Document(s ) Platelets 320 [facility] [#/volume] in 10*3/uL Hospital Blood by Automated count ID Date Data Source [id number] 01/15/2020 03:00:00 PM [facility] Value Range Interpretation Description Data Sup porting Code Source(s) Document(s ) Erythrocyte 11.9 % [facility] width [Ratio] by Automated count ID Date Data Source [id number] 01/15/2020 03:00:00 PM [facility] Value Range Interpretation Description Data Sup porting Code Source(s) Document(s ) Erythrocyte mean 34.0 [facility] corpuscular g/dL Hospital hemoglobin concentration [Mass/volume] by Automated count ID Date Data Source [id number] 01/15/2020 03:00:00 PM [facility] Value Range Interpretation Description Data Sup porting Code Source(s) Document(s ) Erythrocyte 27.0 pg [facility] corpuscular hemoglobin [Entitic mass] by Automated count ID Date Data Source [id number] 01/15/2020 03:00:00 PM [facility] Value Range Interpretation Description Data Sup porting Code Source(s) Document(s ) Erythrocyte 79.4 fL [facility] corpuscular volume [Entitic volume] by Automated count ID Date Data Source [id number] 01/15/2020 03:00:00 PM EDT [facility] Name Value Range Interpretation Description Data Sup porting Code Source(s) Document(s ) Hematocrit 45.0 % [facility] [Volume Hospital Fraction] of Blood by Automated count ID Date Data Source [id number] 01/15/2020 03:00:00 PM EDT [facility] Name Value Range Interpretation Description Data Sup porting Code Source(s) Document(s ) Hemoglobin 15.3 g/dL [facility] [Mass/volume] Hospital in Blood ID Date Data Source [id number] 01/15/2020 03:00:00 PM EDT [facility] Name Value Range Interpretation Description Data Sup porting Code Source(s) Document(s ) Erythrocytes 5.67 [facility] [#/volume] in 10*6/uL Hospital Blood by Automated count ID Date Data Source [id number] 01/15/2020 03:00:00 PM EDT [facility] Name Value Range Interpretation Description Data Sup porting Code Source(s) Document(s ) Leukocytes 7.8 [facility] [#/volume] in 10*3/uL Hospital Blood by Automated count Procedure Social History Code Duration Value Status Description Data Source(s ) Smoking 03/28/2020 Current some completed Current some day [facility] 11:25:00 PM EDT day smoker smoker Hospital Vital Signs ID Date Data Source [id number] Value Range Interpretation Code Description Data Source(s) Diastolic blood 55 mm[Hg] 55 mm[Hg] [facility] pressure Hospital Systolic blood 91 mm[Hg] 91 mm[Hg] [facility] pressure Hospital Respiratory rate 20 /min 20 /min [facility] Heart rate 60 /min 60 /min [facility] Body temperature 36.72534 Leon[facility] 36.28650 Leon[facility] Body temperature 98.1 [degF] 98.1 [degF] [facility] Body mass index 23.2 kg/m2 23.2 kg/m2 [facility] ins (BMI) [Ratio] Hospital Body weight 148 [lb_av] 148 [lb_av] [facility] Diastolic blood 71 mm[Hg] 71 mm[Hg] [facility] pressure Hospital Systolic blood 109 mm[Hg] 109 mm[Hg] [facility] pressure Hospital Respiratory rate 20 /min 20 /min [facility] Heart rate 59 /min 59 /min [facility] Body temperature 36.22726 [facility] 36.20416 Leon[facility] Body temperature 98.0 [degF] 98.0 [degF] [facility] Body mass index 21.9 kg/m2 21.9 kg/m2 [facility] ins (BMI) [Ratio] Hospital Body weight 140 [lb_av] 140 [lb_av] [facility] Diastolic blood 88 mm[Hg] 88 mm[Hg] [facility] Hospital Systolic blood 123 mm[Hg] 123 mm[Hg] [facility] ns pressure [facility] Respiratory rate 20 /min 20 /min [facility] Heart rate 76 /min 76 /min [facility] Body temperature 36.18816 Leonora 36.30551 [facility] Body temperature 98.0 [degF] 98.0 [degF] [facility] Body mass index 25.0 kg/m2 25.0 kg/m2 [facility] ins (BMI) [Ratio] Hospital Body weight 160 [lb_av] 160 [lb_av] [facility]
[2020-03-30] MEDS ORDERED: hydrOXYzine PAMOATE 25 MG CAPSULE (FP) PO PRN (12:20)
[2020-03-30] MEDS ORDERED: ONDANSETRON *ODT* 4 MG TABLET SL PRN (12:38)
[2020-03-30] MEDS: NICOTINE 14 MG/24 HOURS TOPICAL PATCH TD SCH (12:56)
[2020-03-30] MEDS ORDERED: hydrOXYzine PAMOATE 25 MG CAPSULE (FP) PO SCH (14:00)
--- NOTE | 2020-03-30 14:23 | PN ---
S Progress Note Note: Patient is heavily sedated and cannot be interviewed at this time.
[2020-03-30 14:59] LABS: HEMATOCRIT 42.6 % (35.4-49); HEMOGLOBIN 14.6 GM/dL (11.7-16.9); MCH 28.2 pg (25.7-33.7); MCHC 34.3 g/dl (32.0-35.9); MEAN CELL VOLUME 82.3 fl (80-96); PLATELET COUNT 286 K/MM3 (134-434); RBC 5.17 M/mm3 (4.00-5.60); RDW 13.8 % (11.9-15.9); WHITE BLOOD COUNT 9.3 K/mm3 (4.0-10.0)
--- NOTE | 2020-03-30 15:02 | EKG ---
Test Reason : Blood Pressure : / mmHG Vent. Rate : 044 BPM Atrial Rate : 044 BPM P-R Int : 172 ms QRS Dur : 080 ms QT Int : 452 ms P-R-T Axes : 006 056 042 degrees QTc Int : 386 ms MARKED SINUS BRADYCARDIA WITH MARKED SINUS ARRHYTHMIA ABNORMAL ECG NO PREVIOUS ECGS AVAILABLE Confirmed by MONE LUND MD ([id number]) on 03/30/2020 3:02:15 PM Referred By: Confirmed By:MONE LUND MD
[2020-03-30 15:05] LABS: BILIRUBIN,TOTAL 0.5 mg/dL (0.2-1); BLOOD UREA NITROGEN 3.6 mg/dL (7-18); CALCIUM 8.9 mg/dL (8.5-10.1); CREATININE 0.9 mg/dL (0.55-1.3); POTASSIUM 4.4 mmol/L (3.5-5.1); TOT PROT 7.6 g/dl (6.4-8.2)
[2020-03-30] MEDS: NICOTINE POLACRILEX 2 MG GUM BUC PRN ×2 (18:32→20:29)
[2020-03-30] MEDS: THIAMINE HCL 100 MG TABLET (FP) PO SCH (22:54)
[2020-03-30] MEDS: MELATONIN 5 MG TABLETS PO SCH (22:54)
[2020-03-31] MEDS: NICOTINE POLACRILEX 2 MG GUM BUC PRN ×3 (06:17→19:46)
[2020-03-31] MEDS ORDERED: METHADONE HCL 10 MG TABLET (FOR DETOX USE ONLY) ONE (09:24)
[2020-03-31] MEDS ORDERED: METHADONE HCL 5 MG TABLET (FOR DETOX USE ONLY) ONE (09:24)
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
[2020-03-31] MEDS ORDERED: METHADONE (DETOX) 20 MG, METHADONE (DETOX) 5 MG PO ONE (10:00)
[2020-03-31] MEDS ORDERED: PRENATAL VITAMINS W/ FOLIC ACID TABLET (FP) PO SCH (10:00)
[2020-03-31] MEDS: NICOTINE 14 MG/24 HOURS TOPICAL PATCH TD SCH (10:39)
[2020-03-31] MEDS: LORazepam 2 MG TABLET PO PRN ×2 (10:41→19:46)
--- NOTE | 2020-03-31 11:02 | PN ---
[facility] COWS - Scale Resting Pulse: 0= [place] 80 or Below Sweatin= Chills/Flushing Restless Observation: 1= Difficult to Sit Still Pupil Size: 0= Normal to Room Light Bone or Joint Aches: 1= Mild Discomfort Runny Nose/ Eye Tearin= Nasal Congestion GI Upset > 30mins: 0= None Tremor Observation of Outstretched Hands: 0= None Yawning Observation: 2= >3x During Session Anxiety or Irritability: 2=Irritable/Anxious Goose Flesh Skin: 0=Smooth Skin COWS Score: 8 [facility] Progress Note (SOAP) Subjective: sweats body aches interrupted sleep Objective: 03/31/20 10:59 Vital Signs Temperature 97.1 F L 03/31/20 09:10 Pulse Rate 74 03/31/20 09:10 Respiratory Rate 18 03/31/20 09:10 Blood Pressure 98/56 L 03/31/20 09:10 O2 Sat by Pulse Oximetry (%) 98 03/31/20 09:10 Laboratory Tests 03/30/20 03/30/20 03/30/20 11:18 11:45 11:45 WBC 9.3 RBC 5.17 Hgb 14.6 Hct 42.6 MCV 82.3 MCH 28.2 MCHC 34.3 RDW 13.8 Plt Count 286 MPV 9.0 Sodium 141 Potassium 4.4 Chloride 110 H Carbon Dioxide 28 Anion Gap 3 L BUN 3.6 L Creatinine 0.9 Est GFR (CKD-EPI)AfAm 135.19 Est GFR (CKD-EPI)NonAf 116.64 Random Glucose 117 H Calcium 8.9 Total Bilirubin 0.5 AST 16 ALT 29 Alkaline Phosphatase 81 Total Protein 7.6 Albumin 4.0 POC Urine HCG, Qual Negative Syphilis Serology COVID-19 (NEELIMA) 03/30/20 03/30/20 11:45 11:55 WBC RBC Hgb Hct MCV MCH MCHC RDW Plt Count MPV Sodium Potassium Chloride Carbon Dioxide Anion Gap BUN Creatinine Est GFR (CKD-EPI)AfAm Est GFR (CKD-EPI)NonAf Random Glucose Calcium Total Bilirubin AST ALT Alkaline Phosphatase Total Protein Albumin POC Urine HCG, Qual Syphilis Serology Non-reactive COVID-19 (NEELIMA) Not detected labs noted aaox3 ambulating no acute distress Assessment: 03/31/20 11:00 withdrawal sx Plan: continue detox
[2020-03-31] MEDS ORDERED: MIRTAZAPINE 30 MG TABLET PO SCH (22:00)
[2020-03-31] MEDS: MELATONIN 5 MG TABLETS PO SCH (22:17)
[2020-03-31] MEDS: THIAMINE HCL 100 MG TABLET (FP) PO SCH (22:17)
[2020-04-01] MEDS: LORazepam 2 MG TABLET PO PRN (05:43)
[2020-04-01 07:10] VITALS: BP 109/66; PULSE 85; TEMP 96.4
[2020-04-01] MEDS ORDERED: NICOTINE POLACRILEX 4 MG GUM BUC PRN (08:46)
--- NOTE | 2020-04-01 08:57 | PN ---
[facility] Progress Note Note: pt states he needs to leave because he is going to an outpatient program he had already established before coming to our detox. Pt was made aware of risk of relapse, seizure, DT, OD and loss. Pt chose to sign out AMA.
--- NOTE | 2020-04-01 09:07 | DS ---
[facility] Detox Discharge Summary Admission Date: 03/30/20 - History Present History: Cannabis Dependence - Physical Exam Results Vital Signs: Vital Signs Temperature 96.4 F L 04/01/20 05:45 Pulse Rate 85 04/01/20 05:45 Respiratory Rate 20 04/01/20 05:45 Blood Pressure 109/66 04/01/20 05:45 O2 Sat by Pulse Oximetry (%) 98 04/01/20 05:45 Pertinent Admission Physical Exam Findings: Vital Signs Temperature 96.4 F L 04/01/20 05:45 Pulse Rate 85 04/01/20 05:45 Respiratory Rate 20 04/01/20 05:45 Blood Pressure 109/66 04/01/20 05:45 O2 Sat by Pulse Oximetry (%) 98 04/01/20 05:45 Laboratory Tests 03/30/20 03/30/20 03/30/20 11:18 11:45 11:45 WBC 9.3 RBC 5.17 Hgb 14.6 Hct 42.6 MCV 82.3 MCH 28.2 MCHC 34.3 RDW 13.8 Plt Count 286 MPV 9.0 Sodium 141 Potassium 4.4 Chloride 110 H Carbon Dioxide 28 Anion Gap 3 L BUN 3.6 L Creatinine 0.9 Est GFR (CKD-EPI)AfAm 135.19 Est GFR (CKD-EPI)NonAf 116.64 Random Glucose 117 H Calcium 8.9 Total Bilirubin 0.5 AST 16 ALT 29 Alkaline Phosphatase 81 Total Protein 7.6 Albumin 4.0 POC Urine HCG, Qual Negative Syphilis Serology COVID-19 (NEELIMA) 03/30/20 03/30/20 11:45 11:55 WBC RBC Hgb Hct MCV MCH MCHC RDW Plt Count MPV Sodium Potassium Chloride Carbon Dioxide Anion Gap BUN Creatinine Est GFR (CKD-EPI)AfAm Est GFR (CKD-EPI)NonAf Random Glucose Calcium Total Bilirubin AST ALT Alkaline Phosphatase Total Protein Albumin POC Urine HCG, Qual Syphilis Serology Non-reactive COVID-19 (NEELIMA) Not detected labs noted aaox3 ambulating no acute distress lungs CTA pt signed out AMA - Treatment Hospital Course: Rehab Referral Accepted - Medication Discharge Medications: Ambulatory Orders Aripiprazole [Abilify -] 10 mg PO DAILY 03/30/20 Clonidine HCl 0.3 mg PO BID 03/30/20 Lorazepam [Ativan] 2 mg PO TID PRN 03/30/20 Mirtazapine 30 mg PO DAILY 03/30/20 Sertraline HCl [Zoloft] 100 mg PO DAILY 03/30/20 Zolpidem Tartrate [Ambien] 10 mg PO HS 03/30/20 - Diagnosis (1) Cannabis dependence Current Visit: Yes Status: Chronic (2) Depression Current Visit: Yes Status: Acute (3) Electronic cigarette use Current Visit: Yes Status: Acute (4) Opioid withdrawal Current Visit: Yes Status: Acute (5) Substance-induced anxiety disorder Current Visit: Yes Status: Acute (6) Substance-induced sleep disorder Current Visit: Yes Status: Acute (7) Uncomplicated opioid dependence Current Visit: Yes Status: Acute (8) Depressive disorder Current Visit: Yes Status: Chronic (9) Nicotine dependence Current Visit: Yes Status: Chronic Qualifiers: Nicotine product type: cigarettes Substance use status: uncomplicated Qualified Code(s): F17.210 - Nicotine dependence, cigarettes, uncomplicated (10) MDD (major depressive disorder) Current Visit: Yes Status: Ruled-out (11) History of inguinal hernia repair Current Visit: No Status: Chronic - AMA Did Patient Leave Against Medical Advice: Yes
[2020-04-01] MEDS ORDERED: METHADONE HCL 10 MG TABLET (FOR DETOX USE ONLY) PO ONE (10:00)
[2020-04-02] MEDS ORDERED: METHADONE (DETOX) 10 MG, METHADONE (DETOX) 5 MG PO ONE (10:00)
[2020-04-03] MEDS ORDERED: METHADONE HCL 10 MG TABLET (FOR DETOX USE ONLY) PO ONE (10:00)
[2020-04-04] MEDS ORDERED: METHADONE HCL 5 MG TABLET (FOR DETOX USE ONLY) PO ONE (06:00)
== END 2020-04-01 09:15 | disposition left against medical advice (07) | DRG 770 ==
LOC: YASAS 10:33 → Y6N 11:46
PROVIDERS: ADMIT Allergy & Immunology; ATTEND Allergy & Immunology
PROC: HZ2ZZZZ Detoxification Services for Substance Abuse Treatment (ICD-10-PCS; principal; 2020-03-30)
DX: F11.23 Opioid dependence with withdrawal (principal); F12.20 Cannabis dependence, uncomplicated; F17.210 Nicotine dependence, cigarettes, uncomplicated; F17.290 Nicotine dependence, other tobacco product, uncomplicated; F19.280 Other psychoactive substance dependence with psychoactive substance-induced anxiety disorder; F19.282 Other psychoactive substance dependence with psychoactive substance-induced sleep disorder; F32.9 Major depressive disorder, single episode, unspecified; U07.0 Vaping-related disorder; Z98.890 Other specified postprocedural states; Z88.0 Allergy status to penicillin; Z91.018 Allergy to other foods
CPT/HCPCS: 36415; 80053; 81025; 85027; 86780; 93005; 93010; C9803; Q0162; U0003

== ENCOUNTER 2021-06-20 13:36 | Inpatient (IN) | payer OTHER ==
[2021-06-20 19:25] VITALS: BMI 25.0
[2021-06-20] MEDS ORDERED: NICOTINE 10 MG CARTRIDGE (INHALER) IH PRN (21:39)
[2021-06-20] MEDS ORDERED: MAGNESIUM HYDROX 2400MG/30ML ORAL SUSPENSION 30 ML CUP PO PRN (21:39)
[2021-06-20] MEDS ORDERED: IBUPROFEN 400 MG TABLET (FP) PO PRN (21:39)
[2021-06-20] MEDS ORDERED: MAGNESIUM CITRATE 300 ML BOTTLE PO PRN (21:39)
[2021-06-20] MEDS ORDERED: methaDONE HCL 10 MG TABLET (FOR DETOX USE ONLY) PO ONE (21:39)
[2021-06-20] MEDS ORDERED: BISMUTH SUBSALICYLATE 524 MG/30 ML PO PRN (21:39)
[2021-06-20] MEDS ORDERED: ONDANSETRON *ODT* 4 MG TABLET SL PRN (21:39)
[2021-06-20] MEDS ORDERED: cloNIDine HCL 0.1 MG TABLET PO PRN (21:39)
[2021-06-20] MEDS ORDERED: MENTHOL/PHENOL 1 EACH UD MM PRN (21:39)
[2021-06-20] MEDS ORDERED: MAG HYDROX/AL HYDROX/SIMETH 30 ML UNIT-DOSE CUP PO PRN (21:39)
[2021-06-20] MEDS ORDERED: ACETAMINOPHEN 325 MG TABLET (FP) PO PRN ×2 (21:39)
[2021-06-20] MEDS ORDERED: diazePAM 5 MG TABLET ONE (21:58)
[2021-06-20] MEDS ORDERED: methaDONE HCL 10 MG TABLET (FOR DETOX USE ONLY) ONE (21:59)
[2021-06-20] MEDS: diazePAM 5 MG TABLET PO PRN (22:00)
[2021-06-20] MEDS: diazePAM 5 MG TABLET PO SCH (22:56)
[2021-06-20] MEDS: THIAMINE HCL 100 MG TABLET (FP) PO SCH (23:00)
[2021-06-20] MEDS: MELATONIN 5 MG TABLETS PO SCH (23:00)
[2021-06-20] MEDS: NICOTINE POLACRILEX 2 MG GUM BUC PRN (23:04)
[2021-06-21] MEDS: diazePAM 5 MG TABLET PO SCH ×4 (05:18→22:40)
[2021-06-21] MEDS ORDERED: methaDONE HCL 10 MG TABLET (FOR DETOX USE ONLY) ONE (09:47)
[2021-06-21] MEDS: PRENATAL VITAMINS W/ FOLIC ACID TABLET (FP) PO SCH (10:24)
[2021-06-21] MEDS: NICOTINE 14 MG/24 HOURS TOPICAL PATCH TD SCH (10:24)
[2021-06-21 12:31] LABS: HEMATOCRIT 38.8 % (35.4-49); HEMOGLOBIN 12.9 GM/dL (11.7-16.9); MCH 26.5 pg (25.7-33.7); MCHC 33.1 g/dl (32.0-35.9); MEAN CELL VOLUME 80.1 fl (80-96); MEAN PLT VOLUME 7.6 fl (7.5-11.1); PLATELET COUNT 302 10^3/uL (134-434); RBC 4.85 M/mm3 (4.00-5.60); RDW 13.6 % (11.9-15.9); WHITE BLOOD COUNT 6.9 K/mm3 (4.0-10.0)
[2021-06-21 12:46] LABS: CREATININE 0.8 mg/dL (0.55-1.3)
[2021-06-21 12:47] LABS: ALBUMIN 3.8 g/dl (3.4-5.0); BLOOD UREA NITROGEN 8.8 mg/dL (7-18)
[2021-06-21 12:49] LABS: BILIRUBIN,TOTAL 0.5 mg/dL (0.2-1); CALCIUM 9.1 mg/dL (8.5-10.1); TOT PROT 7.3 g/dl (6.4-8.2)
[2021-06-21] MEDS: NICOTINE POLACRILEX 2 MG GUM BUC PRN (18:13)
[2021-06-21] MEDS: diazePAM 5 MG TABLET PO PRN (19:39)
[2021-06-21] MEDS: hydrOXYzine PAMOATE 25 MG CAPSULE (FP) PO PRN ×2 (19:39→22:39)
[2021-06-21] MEDS: MIRTAZAPINE 15 MG TABLET (FP) PO SCH (22:39)
[2021-06-21] MEDS: MELATONIN 5 MG TABLETS PO SCH (22:39)
[2021-06-21] MEDS: THIAMINE HCL 100 MG TABLET (FP) PO SCH (22:39)
[2021-06-21] MEDS: METHOCARBAMOL 500 MG TABLET PO PRN (22:39)
[2021-06-22] MEDS: diazePAM 5 MG TABLET PO SCH ×3 (06:31→22:34)
[2021-06-22] MEDS ORDERED: methaDONE HCL 10 MG TABLET (FOR DETOX USE ONLY) PO ONE (10:00)
[2021-06-22] MEDS: PRENATAL VITAMINS W/ FOLIC ACID TABLET (FP) PO SCH (10:14)
[2021-06-22] MEDS: NICOTINE 14 MG/24 HOURS TOPICAL PATCH TD SCH (10:14)
[2021-06-22 17:20] VITALS: TEMP 97.7
[2021-06-22] MEDS: METHOCARBAMOL 500 MG TABLET PO PRN (18:19)
[2021-06-22] MEDS: MIRTAZAPINE 15 MG TABLET (FP) PO SCH (22:34)
[2021-06-22] MEDS: MELATONIN 5 MG TABLETS PO SCH (22:34)
[2021-06-22] MEDS: THIAMINE HCL 100 MG TABLET (FP) PO SCH (22:34)
[2021-06-23] MEDS ORDERED: diazePAM 5 MG TABLET PO SCH (06:00)
[2021-06-23 07:16] VITALS: BP 90/55; PULSE 63
[2021-06-23] MEDS: PRENATAL VITAMINS W/ FOLIC ACID TABLET (FP) PO SCH (10:46)
[2021-06-23] MEDS: NICOTINE 14 MG/24 HOURS TOPICAL PATCH TD SCH (10:46)
[2021-06-24] MEDS ORDERED: diazePAM 5 MG TABLET PO ONE (06:00)
[2021-06-24] MEDS ORDERED: methaDONE HCL 10 MG TABLET (FOR DETOX USE ONLY) PO ONE (10:00)
== END 2021-06-23 09:35 | disposition left against medical advice (07) | DRG 770 ==
LOC: YASAS 13:36 → Y3N 21:39
PROVIDERS: ADMIT Allergy & Immunology; ATTEND Allergy & Immunology
PROC: HZ2ZZZZ Detoxification Services for Substance Abuse Treatment (ICD-10-PCS; principal; 2021-06-20)
DX: F11.23 Opioid dependence with withdrawal (principal); F13.230 Sedative, hypnotic or anxiolytic dependence with withdrawal, uncomplicated; F12.20 Cannabis dependence, uncomplicated; F17.210 Nicotine dependence, cigarettes, uncomplicated; F32.A Depression, unspecified; F19.24 Other psychoactive substance dependence with psychoactive substance-induced mood disorder; F19.282 Other psychoactive substance dependence with psychoactive substance-induced sleep disorder; F19.280 Other psychoactive substance dependence with psychoactive substance-induced anxiety disorder; Z88.0 Allergy status to penicillin; Z91.018 Allergy to other foods
CPT/HCPCS: 36415; 80053; 85027; 86780; 93005; 93010; C9803; J0735; U0003; U0005